=== PATIENT | male | born 1980 | race Caucasian/White ===

== ENCOUNTER 2020-09-20 20:08 | Emergency (ER) | payer OTHER, SELFPAY ==
[2020-09-20 20:16] VITALS: BP 152/109; PULSE 121; RESP 18; TEMP 37.1; O2SAT 97; BMI 28.7
--- NOTE | 2020-09-20 20:27 | ED.PSYCH ---
HPI - Psych General Chief Complaint: Psychiatric Symptoms Stated Complaint: ETOH,SI Time Seen by Provider: 09/20/20 20:25 Source: patient and EMS Mode of arrival: EMS Limitations: altered mental status (Acute alcohol intoxication) History of Present Illness HPI Narrative: 40-year-old male presents via EMS for acute alcohol intoxication and suicidal statement. Per patient's , patient has been drinking alcohol in excess the past few weeks drinking at least 750 mL of vodka daily. He has been punching himself in the face and punching in [place]. He is having some significant life stressors at home suspected to be a job loss. Patient is belligerent upon arrival. MD complaint: suicidal ideation, feels depressed and alcohol abuse Onset (ago): week(s) Duration: constant History of same: Yes Relieving factors: none Exacerbating factors: alcohol Context: recent alcohol abuse Associated psychiatric symptoms: depression and suicidal ideation Associated symptoms: denies other symptoms If self harm: admits thoughts of self harm and self-inflicted trauma Related Data Allergies Allergy/AdvReac Type Severity Reaction Status Date / Time No Known Allergies Allergy Unverified 01/17/20 15:49 [No Known Allergies*] Review of Systems Review of Systems: Yes Unobtainable due to mental status PMFSH Past Medical History Attestation statement: The following information was validated with the patient. Source: old records reviewed Social History Social History Advance Directives: No Advance Directives Information Provided: No Physical Exam Vital Signs: Vital Signs: Last Vital Signs Temp 98.2 F 09/20/20 22:27 Pulse 124 H 09/20/20 22:27 Resp 20 09/20/20 22:27 BP 140/107 H 09/20/20 22:27 Pulse Ox 96 09/20/20 22:27 Body Mass Index 28.7 Appearance: Alert. Oriented X3. Moderate distress. Acute alcohol intoxication Eyes: Pupils equal, round and reactive to light. Palpebral fissures edematous 2nd crying. Right orbital-forehead hematoma secondary to patient punching himself in the face. ENT: Pharynx normal. Neck: Normal inspection. Neck supple. CVS: Normal heart rate and rhythm. Pulses normal. Respiratory: No respiratory distress. Breath sounds normal. Abdomen: Soft and nontender. Skin: Skin warm and dry. Normal skin color. Normal skin turgor. Extremities: Moves all extremities against resistance. Neuro: No motor deficit. No sensory deficit. Course Course Course Narrative: 40-year-old male presents for alcohol intoxication and suicidal statements. Has been inflicting harm to himself, and punching himself in the face and punching in [place] and making suicidal statements.. Has been drinking 750 mL of vodka daily the past few weeks. called EMS and 911 due to patient's anger outbursts. feels safe, he has never harmed her, she is concerned about his safety. Patient will be on CIWA, patient is interested in detox. Will have cost recovery technician speak to him once he is clinically sober. 1:10 a.m. Physician observation started at this time. Ethanol 385. Patient will be a section 12, BHN consult in the morning. MDM - Psych Differential Diagnosis Differential diagnosis: Likely suicidal ideation, depression and alcohol intoxication Medical Records Attestation: I reviewed the patient's medical records. Lab Data Attestation: I reviewed the patient's lab results. Labs: Lab Results 09/20/20 09/20/20 Range/Units 20:24 22:15 Ethyl Alcohol 385 H* mg/dL COVID-19 (GEORGETTE) Negative (Negative) COVID-19 Clin Com See Note Discharge Plan Discharge Clinical Impression: Suicidal ideation, Alcohol abuse Patient Disposition: Home, Self-Care Interventions: ED Discharge Assessment Last Done: 09/20/20 21:57
[2020-09-20 20:47] LABS: COVID-19 Test Negative (Negative); IDNOW Serial# 9DD0AD1C
[2020-09-20] MEDS: Folic Acid 1 MG TABLET PO (22:26)
[2020-09-20] MEDS: Thiamine HCL 100 MG TABLET PO (22:26)
[2020-09-20 22:27] VITALS: BP 140/107; PULSE 124; RESP 20; TEMP 36.8; O2SAT 96
[2020-09-20] MEDS: LORazepam 1 MG TABLET 2 MG PO (22:35)
[2020-09-20 22:51] LABS: Ethanol 385 mg/dL
--- NOTE | 2020-09-21 01:16 | PC.NURSE ---
BHN notified through smart-sheet/awaiting call back.
[2020-09-21 06:07] VITALS: BP 114/76; PULSE 99; RESP 14; TEMP 36.4; O2SAT 96
[2020-09-21 06:40] LABS: Amphetamine Screen Urine Not Detected (Not Detect); Barbiturates, Urine Not Detected (Not Detect); Benzodiazepines Screen Urine Not Detected (Not Detect); Cannabinoid Screen Urine Not Detected (Not Detect); Cocaine Screen Urine Not Detected (Not Detect); Opiate Screen Urine Not Detected (Not Detect); Phencyclidine Screen Urine Not Detected (Not Detect)
[2020-09-21 10:58] VITALS: BP 134/81; PULSE 75; RESP 18; TEMP 36.6; O2SAT 97
--- NOTE | 2020-09-21 11:04 | MHC.RECOVSUP ---
Recovery Support note: Patient is a 40 year old Maori speaking male who presented to [facility] ED due to making an SI statement while intoxicated. Patient was evaluated by ANTONINA and cleared of needing inpatient psychiatric care. N recommends EATS or detox level of care. This assembly instructions writer met with patient to discuss plan. Patient reports he is interested in going to detox but that he has had a hard time finding a bed. Discussed situation with patient's , Nelia, who reports that patient has been drinking since 12/2019 and that he lost his job last week and has been drinking significantly more since then. reports patient needs assisted treatment and that an ATS/CSS admission will be too short. 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 Plan for patient to be referred for EATS programs and if patient is not placed, patient will discharge tomorrow morning to work with his on getting into [facility] or another detox program as a walk in. Patient has been cleared by Glenn and is able to leave if he is no longer interested in staying in the ED. Discussed case with patient's ED provider and ANTONINA.
[2020-09-21 15:34] VITALS: RESP 16
[2020-09-21 15:40] VITALS: BP 145/94; PULSE 91; RESP 18; TEMP 36.6; O2SAT 97
[2020-09-21] MEDS: Acetaminophen 325 MG TABLET 650 MG PO (15:41)
--- NOTE | 2020-09-21 19:45 | MHC.CARE ---
[facility] crisis eval and ED physician report with labs and med clearance were faxed to Deon at [facility] [phone]
--- NOTE | 2020-09-21 20:07 | PC.NURSE ---
Patient in bed resting quietly, no distress observed/reported, asymptomatic of withdrawal, per report patient had a decent day, will continue to monitor.
[2020-09-22 04:19] VITALS: BP 150/107; PULSE 86; RESP 16; TEMP 36.4; O2SAT 96
--- NOTE | 2020-09-22 07:00 | PC.NURSE ---
received report from prior RN, patient appears to remain asleep at present breathing even unlabored breaths, patient appears in no distress
[2020-09-22 07:25] VITALS: BP 150/107; PULSE 96; RESP 18; TEMP 36.9; O2SAT 97
--- NOTE | 2020-09-22 09:42 | MHC.RECOVSUP ---
Recovery Support note: Patient was accepted to [facility]. This chief writer spoke with patient's and her mother will be coming [place] [facility] [place] 1030 to pick patient up to transport him to the facility in [place]. ED staff aware.
== END 2020-09-22 10:29 ==
PROVIDERS: Nurse Practitioner Family; Emergency Provider Student in an Organized Health Care Education/Training Program
DX: F10.120 Alcohol abuse with intoxication, uncomplicated (principal); Y90.8 Blood alcohol level of 240 mg/100 ml or more; R45.851 Suicidal ideations; F32.9 Major depressive disorder, single episode, unspecified; Z20.822 Contact with and (suspected) exposure to COVID-19
CPT/HCPCS: 36415; 80307; 80320; 87635; 99285

== ENCOUNTER 2024-01-05 09:39 | Outpatient (AMB) | payer OTHER, SELFPAY ==
--- NOTE | 2024-01-05 10:08 | A.OFFPC_ITS ---
Vital Signs 01/05/24 10:11 Height 6 ft Weight 200 lb 6 oz BMI 27.2 BP 124/70 Blood Pressure Location Lt brachial Position Sitting Respiration 14 Pulse 62 Pulse Source Pulse Oximeter Pulse Oximetry (%) 98 Oxygen Delivery Method Room Air Intake Visit Reasons: Establish Care Intake Note: patient here to establish care Allergies No Known Allergies [No Known Allergies*] Allergy (Verified 01/05/24 10:15) Medication List - Last Reconciled 01/05/24 by Marybel Davidson [facility] cholecalciferol (vitamin D3) 50 mcg PO DAILY sour clark extract (Tart Clark Extract) mg PO Tobacco use date assessed: 01/05/24 Dental Screening Dental Screen Date: 01/05/24 Did you have a dental visit in the last 12 months?: No Did you have a dental problem in the last 6 months where you did not have access to dental care?: No Was dental information given to patient?: No HPI HPI Comments History of Present Illness Details 43 y/o with [place] use disorder in [place], vitamin d def Hospitalizations: Several detox, last and brought in 2020 Health Maintenance: Tdap PSA ordered today Specialists: Counselor Here today to establish care. Coming from [facility], no medical records available to me today. Overall he reports that he is in a good state of health. He is only taking a d ark clark and vitamin-D supplement. Really unsure why he is taking the tortuosity supplement as he denies a history of gout or urinary complaints. He does report his vitamin-D level was low in the past. However he is taking the supplement. In regards to other history, he reports a history of cocaine abuse several years ago. This has been in remission for some time. However he has been abusing alcohol for about 20 years. He has been in recovery since 2020. He reports that he remains active in his recovery and has a support team. He runs daily and lifts weights. Denies any medical complications related to his substance use disorder. Otherwise he does complain of some neck pain that started about 4 years ago without overt injury. He reports that the pain only occurs with certain m ovements such as lifting his left arm. The pain is not present all the time. He reports that he did undergo physical therapy about 2 years ago and this was helpful. Most recently his primary care tried to order an MRI however this was denied by the insurance. He reports that x-rays were done in the past while he was hospitalized in [place]. When asked about numbness he does report that he has some numbness in his left thumb and index finger however this is only when he runs and is self-limiting. Otherwise he denies any neurovascular complications. He is right-hand dominant. Does complain of some bilateral knee pain although this is not really bothersome, rather just a mention. Admits to running long distances, today 40 mi or the other weekend. Etoh abuse for 20 years. Sober since 2020. Several detox admissions. hx of cocaine use, septum issues Exam Awake alert oriented, acute distress PERRLA, EOMI Neck full range of motion, cervical spine nontender with palpation. Full range of motion normal strength and tone in bilateral upper extremities. When arms raised laterally complains of pain the left side of his neck and into his left shoulder. No obvious deformities. No erythema. No edema. Regular rate and rhythm Lung sounds clear to auscultation bilat Mood and affect appropriate Plan: Refer to PT for neck pain. Check screening labs At this time, cont supplements. Sobriety celebrated ! Return to office in 6 weeks for complete physical exam, sooner as needed This note is constructed using voice recognition software. While every effort has been made to ensure accuracy in associate professor of radiology, still errors may have been included Sometimes, these errors may affect the content or meaning of the given sentence . Total time spent caring for the patient today was 30 minutes. This includes time spent before the visit reviewing the chart, time spent during the visit, and time spent after the visit on documentation [facility] Medical History (Updated 01/05/24 @ 11:00 by Marybel Davidson, [facility]) Drug addiction Alcoholism Surgical History (Updated 01/05/24 @ 10:16 by Siobhan Rushing) No pertinent past surgical history Family History (Updated 01/05/24 @ 10:18 by Siobhan Rushing) Mother Hypertension High cholesterol Father Cancer Alcoholism Substance abuse Social History (Updated 01/05/24 @ 10:18 by Siobhan Rushing) Household Members: Spouse Housing: Apartment Do you presently have visiting nurse or other home services: No 75 years or older and lives alone: No Alcohol intake: former Year quit: 3yrs Patient Tobacco Use Status: Never used Tobacco e-Cigarette/Vaping Use: Never Used service: No Current occupational status: employed 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 1. Little interest or pleasure in doing things: not at all 2. Feeling down, depressed, or hopeless: not at all 3. Trouble falling or staying asleep, or sleeping too much: not at all 4. Feeling tired or having little energy: several days 5. Poor appetite or overeating: not at all 6. Feeling bad about yourself - or that you are a failure or have let yourself or your family down: not at all 7. Trouble concentrating on things, such as reading the newspaper or watching television: not at all 8. Moving or speaking so slowly that other people could have noticed. Or the opposite - being so fidgety or restless that you have been moving around a lot more than usual: not at all 9. Thoughts that you would be better off or of hurting yourself in some way: not at all Total score: 1 Depression Screening Interpretation: Negative Depression Screening Done: Yes 73997 - PHQ-9 Billing: Yes Source: Developed by Drs. Deon Fernandez, Carmen Mancia, Darnell Vines and colleagues, with an educational aniyah from [employer]. Thrive Questionnaire Date Thrive assessed: 01/05/24 I am a: Patient What is your living situation today?: I have a steady place to live Within the past 12 months, did the food you bought not last and you didn't have the money to get more?: Never true Within the past 12 months, did you worry whether your food would run out before you got money to buy more?: Never true Do you have trouble paying for medicines?: No Do you have trouble getting transportation to medical appointments?: No Do you have trouble paying your heating and electricity bill?: No Do you have trouble taking care of your child, family member or friend?: No Do you have trouble with day-to-day activities such as bathing, preparing meals, shopping, managing finances, etc.?: No Are you currently unemployed and looking for a job?: No Are you interested in more education?: No Please select the resources that you would like help with: None THRIVE Score: 0 AUDIT C Alcohol Use Questionnaire (AUDIT-C) 1. How often do you have a drink containing alcohol?: Never Total Score: 0 Score Reviewed/Action Taken: Yes FARIDEH-7 AMB Questionnaire FARIEDH-7 Date FARIDEH - 7 assessed: 01/05/24 Feeling nervous, anxious, or on edge: 0 = Not at all Not being able to stop or control worryin = Not at all Worrying too much about different things: 0 = Not at all Trouble relaxin = Not at all Being so restless that it is hard to sit still: 0 = Not at all Becoming easily annoyed or irritable: 0 = Not at all Feeling afraid as if something awful might happen: 0 = Not at all Total FARIDEH-7 score (0-4 normal; 5-9 mild; 10-14 moderate; 15-21 severe): 0 Source: Developed by Drs. Deon Fernandez, Carmen Mancia, Darnell Vines and colleagues, with an educational aniyah from [employer]. FARIDEH-7 Assessment Billing FARIDEH-7 Assessment Tool: FARIDEH-7 Assessment 80094 Physical exam (Primary Care) Vital Signs: Last Vital Signs Pulse 62 01/05/24 10:11 Resp 14 01/05/24 10:11 BP 124/70 01/05/24 10:11 Pulse Ox 98 01/05/24 10:11 Oxygen Delivery Method Room Air 01/05/24 10:11 BMI result Body Mass Index 27.2 Tobacco/Smoking Status: Tobacco use Status Tobacco use date assessed 01/05/24 01/05/24 10:13 Patient Tobacco Use Status Never used Tobacco 01/05/24 10:13 e-Cigarette/Vaping Use Never Used 01/05/24 10:13 PHQ-9: PHQ-9 Score PHQ-9: Total score 1 01/05/24 10:21 Depression Screening Interpretation: Negative Thrive Assessment: Date of Thrive Assessment Date Thrive assessed 01/05/24 01/05/24 10:15 Assessment and Plan Assessment & Plan (1) Cervical pain (neck): Code(s): M54.2 - Cervicalgia (2) Alcohol dependence: Code(s): F10.20 - Alcohol dependence, uncomplicated Qualifiers: Substance use status: in remission Qualified Code(s): F10.21 - Alcohol dependence, in remission (3) Cocaine abuse in remission: Code(s): F14.11 - Cocaine abuse, in remission (4) Vitamin D deficiency: Code(s): E55.9 - Vitamin D deficiency, unspecified (5) Laboratory exam ordered as part of routine general medical examination: Code(s): Z00.00 - Encounter for general adult medical examination without abnormal findings Orders: Orders PT Evaluation and Treatment Today M54.2 - Cervicalgia Comprehensive Met. Panel Today Z00.00 - Encounter for general adult medical examination without abnormal findings TSH reflex Free T4 Today Z00.00 - Encounter for general adult medical examination without abnormal findings PSA, Ultra Sensitive Today Z00.00 - Encounter for general adult medical examination without abnormal findings Hemoglobin A1c Today Z00.00 - Encounter for general adult medical examination without abnormal findings LDL Cholesterol Direct Today Z00.00 - Encounter for general adult medical examination without abnormal findings Vitamin B12 and Folate Today Z00.00 - Encounter for general adult medical examination without abnormal findings Vitamin D 1,25 dihydroxy Today Z00.00 - Encounter for general adult medical examination without abnormal findings Microalbumin, Random (w Creat) Today Z00.00 - Encounter for general adult medical examination without abnormal findings Patient Instructions: Walk-In Care (Urgent Care): We Make it Easy Walk-in for urgent medical issues such as: ? Seasonal Allergies ? Insect Bites ? Cough ? Diarrhea ? Acute Asthma Attacks ? Back, Knee or Joint Pain ? Ear Infection ? Fever without a Rash ? Headaches ? Nausea ? [place], Rash or Skin Irritation ? Sore Throat ? Sports Physicals ? Vomiting Most insurances are accepted. Patients do not need to be part of the [facility] to seek care at the walk-in clinic. Locations [facility] [address], [place] [address] ? [phone] [facility] Walk-In Care in [place] provides services to ages 18 and over. Open Tuesday-Tuesday: 8 a.m. to 5 p.m. and Tuesday: 9 a.m. to 3 p.m.* *Hours may vary due to staffing availability. To confirm Walk-In Care hours in [place], please call [phone]. [address] [place] [address], [place] [address] ? [phone] [facility] Walk-In Care in [place] provides services to ages 12 and over. Open Tuesday-Tuesday: 8 a.m. to 5 p.m. Hours may vary due to staffing availability. To confirm Walk-In Care hours in [place], please call [phone]. LABORATORY SERVICES: [facility] Lab ? Primary Location [address] [place] [address] Tuesday through Tuesday 6:00 AM ? 5:00 PM Tuesday 7:00 AM ? 11:00 AM* [phone] The [facility] Lab is centrally located near the front entrance of the [facility] for easy outpatient access. Convenient parking is provided for outpatients. *Hours may vary due to staffing availability. To confirm Laboratory hours for any location, please call [phone]. Offsite Location For your convenience, we offer offsite laboratory draw stations at the following locations: [address] [place] [address] ? [address], [address] Tuesday through Tuesday 7:30 AM ? 1:00 PM* [phone] *Hours may vary due to staffing availability. To confirm Laboratory hours for any location, please call [phone]. [place] ? [address] Tuesday through Tuesday 6:00 AM ? 3:30 PM* Tuesday 6:30 AM ? 3 PM* [phone] *Hours may vary due to staffing availability. To confirm Laboratory hours for any location, please call [phone] [place] [address] Tuesday through Tuesday 7:30 AM ? 4:00 PM* [phone] *Hours may vary due to staffing availability. To confirm Laboratory hours for any location, please call [phone] [place] [address] Tuesday through 9:00 AM ? 4:00 PM* *Hours may vary due to staffing availability. To confirm Laboratory hours for any location, please call [phone]. Appointments are not necessary. Walk-ins are welcome. Like all the departments throughout the [facility], our Lab undergoes frequent reviews to ensure the quality and accuracy of test results, and our staff takes special pride in its status as a nationally accredited facility. Patient Portal: ONE PATIENT. ONE RECORD. BETTER CARE. [facility] has a fully integrated, cutting- edge mobile electronic health information system that has revolutionized the way we care for our patients and manage our organization. This system improves communication and coordination enabling us to provide safe, higher-quality care, and an overall positive experience for staff and patients. Our first priority, as always, is to deliver the highest quality care possible. The system is running in the background supporting that priority. This portal is for all [facility] services and practices. If you are experiencing any technical difficulties with enrolling or logging into the Patient Portal please complete the [facility] Patient Portal Technical Support Form. [facility] now offers a new secure on-line interactive tool for patients to review their health information ? ?Patient Portal. This interactive web portal will enable patients and their families to take an active role in their care by providing easy, secure access to their health information via the internet. The Patient Portal provides patients with instant access to their health information, including laboratory results, medications, allergies, demographic information, visit history, and more. In addition to managing their own care, parents and health care proxies with authorized consent will appreciate the ability to access the records of those individuals for whom they provide care. Please note: if you wish to gain access (Proxy) to another patient?s portal, you will be required to come to the Medical Records Department in person at [facility]. Both the patient giving proxy access and the proxy will need to provide photo identification and complete the appropriate authorization. The Patient Portal also allows track their appointments online. The [facility] Patient Portal also saves patients time by allowing them to submit updates to their demographic and contact information prior to their visits. Portal email notifications will also alert patients to any new activity on their portal, such as test results and new appointments. In order to initially enroll in the [facility] Patient Portal, you will need to enter some required information including the following: * your [facility] Medical Record number * your personal home email address * name * date of Please note: In order to enroll in the [facility] Patient Portal, we need to have your email address on file in your electronic medical record. ?The email address needs to be specific for one person (yourself) in order for your Portal enrollment to be successful. ?You can update your email address in person with our Registration staff when you are registering for a hospital visit. ?Otherwise, you will need to come to the Health Information Management (Medical Records) Department at [facility]. ?We are open from Tuesday ? Tuesday from 7:30 a.m. ? 4:30 p.m. ?You will be required to present a photo id. Once you have successfully enrolled in the Patient Portal, you will receive a one-time user id and password for the Portal, sent to your email address. ?This will allow you to log into the Patient Portal within 99 hrs and reset your own logon id and password, and define personal security questions. ?Once your permanent login and password have been set, you can log into the [facility] Patient Portal at any time via the blue button above or from the Portal Logon button on any page of the [facility] website. [facility] and [facility] encourage all of our patients to enroll in Patient Portal as it presents a valuable opportunity for patients and their families to actively participate in their care and stay healthy Welcome to [facility]. ?We look forward to working with you. Coding Level of Care Code New Pt Level 4 (61494) Diagnoses Cervical pain (neck) M54.2 Alcohol dependence in remission F10.21 Substance use status: in remission Cocaine abuse in remission F14.11 Vitamin D deficiency E55.9 Laboratory exam ordered as part of routine general medical examination Z00.00 Additional Codes FARIDEH-7 Assessment Billing - FARIDEH-7 Assessment Tool: FARIDEH-7 Assessment 45864 ([id number])
[2024-01-05 10:11] VITALS: BP 124/70; PULSE 62; RESP 14; O2SAT 98; BMI 27.2
== END 2024-01-05 10:40 | disposition home or self-care (01) ==
PROVIDERS: Visit Provider Nurse Practitioner Family
DX: M54.2 Cervicalgia (principal); F10.21 Alcohol dependence, in remission; F14.11 Cocaine abuse, in remission; E55.9 Vitamin D deficiency, unspecified
CPT/HCPCS: 99204

== ENCOUNTER 2024-01-05 10:32 | Outpatient (REF) | payer OTHER, SELFPAY ==
[2024-01-05 14:55] LABS: Estimated Average Glucose 91 mg/dL; Hemoglobin A1c % 4.8 % (<6.0)
[2024-01-05 15:07] LABS: Alanine Aminotransferase 19 U/L (0-40); Albumin Level 4.4 g/dL (3.5-5.0); Alkaline Phosphatase 35 U/L (39-117); Anion Gap 12 (12-20); Aspartate Amino Transferase 21 U/L (5-37); Bilirubin Total 2.6 mg/dL (0.0-1.0); Blood Urea Nitrogen 14 mg/dL (9-16); Calcium 9.5 mg/dL (8.4-10.2); Carbon Dioxide 28 mmol/L (22-29); Chloride 102 mmol/L (96-108); Estimated Glomerular Filt Rate > 60; Glucose Random 89 mg/dL (60-115); Potassium 4.3 mmol/L (3.3-5.1); Sodium 138 mmol/L (135-145); Total Protein 7.5 g/dL (6.5-8.0)
[2024-01-05 15:23] LABS: Creatinine Urine 31.32 mg/dL; Microalbumin Urine < 5.0 mg/L
[2024-01-05 15:34] LABS: Folate 12.6 ng/mL (> or = 4.0); Vitamin B12 427 pg/mL (200-900)
[2024-01-06 17:37] LABS: LDL Cholesterol Direct 109 mg/dL (<100)
[2024-01-10 01:28] LABS: VITAMIN D (1,25 OH) D3 33 pg/mL; Vit D (1,25-Dihydroxy) Total 33 pg/mL (18-72); Vitamin D (1,25 OH) D2 <8 pg/mL
== END 2024-01-05 10:33 | disposition home or self-care (01) ==
LOC: HO.WFDLDS 10:32
PROVIDERS: Visit Provider Nurse Practitioner Family
DX: Z00.00 Encounter for general adult medical examination without abnormal findings (principal); Z12.5 Encounter for screening for malignant neoplasm of prostate; Z13.1 Encounter for screening for diabetes mellitus
CPT/HCPCS: 36415; 80053; 82043; 82570; 82607; 82652; 82746; 83036; 83721; 84153; 84443

== ENCOUNTER 2024-02-15 07:51 | Outpatient (AMB) | payer OTHER, SELFPAY ==
--- NOTE | 2024-02-15 08:00 | A.OFFPC_ITS ---
Vital Signs 02/15/24 08:03 Height 6 ft Weight 202 lb BMI 27.4 BP 118/68 Blood Pressure Location Rt brachial Position Sitting Respiration 14 Pulse 56 Pulse Source Pulse Oximeter Pulse Oximetry (%) 98 Oxygen Delivery Method Room Air Intake Visit Reasons: 6 weeks CPE Intake Note: annual physical Allergies No Known Allergies [No Known Allergies*] Allergy (Verified 02/15/24 08:18) Medication List - Last Reconciled 02/15/24 by Marybel Davidson, [facility] cholecalciferol (vitamin D3) 50 mcg PO DAILY sour clark extract (Tart Clark Extract) mg PO Tobacco use date assessed: 01/05/24 Dental Screening Dental Screen Date: 01/05/24 HPI HPI Comments History of Present Illness Details 43 y/o with [place], vitamin d def Social: , employed Surgical hx: none Family hx: Mom: , brain aneurysm 58, had HTN. Dad: cancer renal, etoh abuse. Siblings: 1 sister alive and well, 1/2 sister osteoporosis All grandparents - unsure about cancer, heart disease. Maternal aunt mental health. Hospitalizations: Several detox, last and brought in 2020 Health Maintenance: Tdap 11/26/20 PSA 01/05/24 Flu declined Specialists: Counselor Here today for CPE. Labs from 01/05/24 show electrolytes normal renal function, hemoglobin A1c 4.8% elevated total bilirubin 2.6 with normal AST and ALT, alk-phos a little bit low at 35, total protein albumin, normal B12 and folate, normal TSH, normal random microalbumin, direct LDL 109. Vit d normal, PSA normal Has some MS pain from running. Using topical magnesium to help. Foam rolling. Will be doing 100k 62 miles Was referred to PT at last visit for L shoulder/neck did not schedule yet. Not as bothersome now that not doing mopping/sweeping which caused the pain. Has never had MRI for brain aneurysm screening; Mom age 58. Has headaches at times; Denies red flag Eyes - glasses. Regular eye exams, last Summer 2023 c/o [place], worse in noisy environment, constant feeling of something in L ear. Skin - no concerns. Abd - no concerns Elimination - no issues Plan Left great toe and 5th toe subungal hematoma - reassured. Audiogram for [place] Brain MRI to screen for aneurysm Cont supplements Declined Flu RTO 1 year CPE sooner PRN [facility] Medical History Drug addiction Alcoholism Surgical History No pertinent past surgical history Family History Mother Hypertension High cholesterol Father Cancer Alcoholism Substance abuse Social History Household Members: Spouse Housing: Apartment Do you presently have visiting nurse or other home services: No 75 years or older and lives alone: No Alcohol intake: former Year quit: 3yrs Patient Tobacco Use Status: Never used Tobacco e-Cigarette/Vaping Use: Never Used service: No Current occupational status: employed 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 1. Little interest or pleasure in doing things: not at all 2. Feeling down, depressed, or hopeless: not at all 3. Trouble falling or staying asleep, or sleeping too much: not at all 4. Feeling tired or having little energy: not at all 5. Poor appetite or overeating: not at all 6. Feeling bad about yourself - or that you are a failure or have let yourself or your family down: not at all 7. Trouble concentrating on things, such as reading the newspaper or watching television: not at all 8. Moving or speaking so slowly that other people could have noticed. Or the opposite - being so fidgety or restless that you have been moving around a lot more than usual: not at all 9. Thoughts that you would be better off or of hurting yourself in some way: not at all Total score: 0 40662 - PHQ-9 Billing: Yes Source: Developed by Drs. Deon Fernandez, Carmen Mancia, Darnell Vines and colleagues, with an educational aniyah from [employer]. Thrive Questionnaire Date Thrive assessed: 02/15/24 I am a: Patient What is your living situation today?: I have a steady place to live Within the past 12 months, did the food you bought not last and you didn't have the money to get more?: Never true Within the past 12 months, did you worry whether your food would run out before you got money to buy more?: Never true Do you have trouble paying for medicines?: No Do you have trouble getting transportation to medical appointments?: No Do you have trouble paying your heating and electricity bill?: No Do you have trouble taking care of your child, family member or friend?: No Do you have trouble with day-to-day activities such as bathing, preparing meals, shopping, managing finances, etc.?: No Are you currently unemployed and looking for a job?: No Are you interested in more education?: No Please select the resources that you would like help with: None Currently or been in a relationship where the following occur: No concerns reported THRIVE Score: 0 AUDIT C Alcohol Use Questionnaire (AUDIT-C) 1. How often do you have a drink containing alcohol?: Never Total Score: 0 FARIDEH-7 AMB Questionnaire FARIDEH-7 Date FARIDEH - 7 assessed: 02/15/24 Feeling nervous, anxious, or on edge: 0 = Not at all Not being able to stop or control worryin = Not at all Worrying too much about different things: 0 = Not at all Trouble relaxin = Not at all Being so restless that it is hard to sit still: 0 = Not at all Becoming easily annoyed or irritable: 0 = Not at all Feeling afraid as if something awful might happen: 0 = Not at all Total FARIDEH-7 score (0-4 normal; 5-9 mild; 10-14 moderate; 15-21 severe): 0 Source: Developed by Drs. Deon Fernandez, Carmen Mancia, Darnell Vines and colleagues, with an educational aniyah from [employer]. FARIDEH-7 Assessment Billing FARIDEH-7 Assessment Tool: FARIDEH-7 Assessment 50831 Review of Systems Const Details: Constitutional: Denies fever. Skin: Denies rash. Eye: Denies eye pain. ENMT: Denies sore throat and nasal congestion. Respiratory: Denies shortness of breath and cough. Gastrointestinal: Denies nausea, vomiting or abdominal pain. Cardiovascular: Denies chest pain and syncope. Genitourinary: Denies dysuria. Musculoskeletal: Denies back pain and extremity pain. Neurologic: Denies confusion, and weakness. Psychiatric: Denies suicidal thoughts and substance abuse. Allergy/ Immunologic: Denies impaired immunity. Physical exam (Primary Care) Vital Signs: Last Vital Signs Pulse 56 02/15/24 08:03 Resp 14 02/15/24 08:03 BP 118/68 02/15/24 08:03 Pulse Ox 98 02/15/24 08:03 Oxygen Delivery Method Room Air 02/15/24 08:03 BMI result Body Mass Index 27.4 Tobacco/Smoking Status: Tobacco use Status Tobacco use date assessed 01/05/24 02/15/24 08:02 Patient Tobacco Use Status Never used Tobacco 02/15/24 08:02 e-Cigarette/Vaping Use Never Used 02/15/24 08:02 PHQ-9: PHQ-9 Score PHQ-9: Total score 0 02/15/24 08:06 Thrive Assessment: Date of Thrive Assessment Date Thrive assessed 02/15/24 02/15/24 08:06 Currently or been in a relationship where the following occur: No concerns reported Const Other: General: Well developed, well nourished, in no acute distress. Appears stated age. Head: Normocephalic, atraumatic. Eyes: Pupils are equal, round and reactive to light and accommodation. Conjunctivae are clear. Vision grossly normal. Ears: TMs clear AU, EACS WNL Nose: Patent, without discharge. Mouth: There are no ulcers or lesions noted. No inflammation, no post nasal drip, no plaques nor exudates. Neck: Supple, no adenopathy or thyromegaly. Lungs: Clear to auscultation bilaterally. No rales, rhonchi or wheeze noted. Good air flow in all dobbs. Heart: Regular rate and rhythm. No murmurs, click, rubs or gallops are noted. Abdomen: Bowel sounds present in all quadrants. The abdomen is soft, nontender, with no masses or organomegaly noted. No hernias are noted. Musculoskeletal: Joints are nontender, without swelling, redness, or effusions. Range of motion is observed to be normal. Pulses: Peripheral pulses are equal and palpable bilaterally. Extremities: No clubbing, cyanosis nor edema is noted. Neurologic: Gait and station normal. Cranial Nerves 2-12 intact. Motor strength grossly symmetrical and intact. No sensory loss. Balance normal. Skin: No rashes, ulcers, or lesions noted. Turgor is good. Skin color is good. Hair and nails are without abnormalities. Psych: Normal eye contact, affect and mood appropriate, and normal interactions. Patient is alert and appropriate to context. Coding Level of Care Code Est Pt Prev Care 40-64y(28183) Diagnoses Encounter for general adult medical examination without abnormal findings Z00.00 Hard of hearing H91.90 Family history of brain aneurysm Z82.49 Nonintractable episodic headache, unspecified headache type R51.9 Headache type: unspecified Headache chronicity pattern: episodic headache Intractability: not intractable Additional Codes FARIDEH-7 Assessment Billing - FARIDEH-7 Assessment Tool: FARIDEH-7 Assessment 14644 ([id number]) Assessment & Plan Assessment & Plan (1) Encounter for general adult medical examination without abnormal findings: Code(s): Z00.00 - Encounter for general adult medical examination without abnormal findings Plan: . (2) Hard of hearing: Code(s): H91.90 - Unspecified hearing loss, unspecified ear Category: Medical Plan: . (3) Family history of brain aneurysm: Code(s): Z82.49 - Family history of ischemic heart disease and other diseases of the circulatory system Category: Medical Plan: . (4) Headache: Code(s): R51.9 - Headache, unspecified Category: Medical Qualifiers: Headache type: unspecified Headache chronicity pattern: episodic headache Intractability: not intractable Qualified Code(s): R51.9 - Headache, unspecified Plan: . Plan . Orders: Orders MR head/brain wo con Today R51.9 - Headache, unspecified, Z82.49 - Family history of ischemic heart disease and other diseases of the circulatory system Referrals Audiology Referral H91.90 - Unspecified hearing loss, unspecified ear Patient Instructions: Health screenings for men ages 40 to 64 You should visit your health care provider regularly, even if you feel healthy. The purpose of these visits is to: Screen for medical issues Assess your risk for future medical problems Encourage a healthy lifestyle Update vaccinations and other preventive care services Help you get to know your provider in case of an illness Information Even if you feel fine, you should still see your provider for regular checkups. These visits can help you avoid problems in the future. For example, the only way to find out if you have high blood pressure is to have it checked regularly. High blood sugar and high cholesterol level also may not have any symptoms in the early stages. Simple blood tests can check for these conditions. There are specific times when you should see your provider or receive specific health screenings. The [place] Preventive Services Task Force publishes a list of recommended screenings. Below are screening guidelines for men ages 40 to 64. BLOOD PRESSURE SCREENING Have your blood pressure checked at least once every year. Watch for blood pressure screenings in your area. Ask your provider if you can stop in to have your blood pressure checked. Ask your provider if you need your blood pressure checked more often if: You have diabetes, heart disease, kidney problems, or are overweight or have certain other health conditions You have a first-degree relative with high blood pressure You are Black Your blood pressure top number is from 120 to 129 mm Hg, or the bottom number is from 70 to 79 mm Hg If the top number is 130 mm Hg or greater or the bottom number is 80 mm Hg or greater, this is considered stage 1 hypertension. Schedule an appointment with your provider to learn how you can lower your blood pressure. Effects of age on blood pressure CHOLESTEROL SCREENING Cholesterol screening should begin at age 35 for men with no known risk factors for coronary heart disease. Repeat cholesterol screening should take place: Every 5 years for men with normal cholesterol levels More often if changes occur in lifestyle (including weight gain and diet) More often if you have diabetes, heart disease, kidney problems, or certain other conditions COLORECTAL CANCER SCREENING If you are under age 45, talk to your provider about getting screened. You may need to be screened if you have a strong family history of colon cancer or polyps. Screening may also be considered if you have risk factors such as a history of inflammatory bowel disease or polyps. If you are age 45 to 75, you should be screened for colorectal cancer. There are several screening tests available: A stool-based fecal occult blood (gFOBT) or fecal immunochemical test (FIT) every year A stool sDNA test every 1 to 3 years Flexible sigmoidoscopy every 5 years or every 10 years with stool testing FIT done every year CT colonography (virtual colonoscopy) every 5 years Colonoscopy every 10 years You may need a colonoscopy more often if you have risk factors for colorectal cancer, such as: Ulcerative colitis A personal or family history of colorectal cancer A history of growths in your colon called adenomatous polyps DENTAL EXAM Go to the dentist once or twice every year for an exam and cleaning. Your dentist will evaluate if you have a need for more frequent visits. DIABETES SCREENING All adults who do not have risk factors for diabetes should be screened starting at age 35 and repeated every 3 years. If you have other risk factors for diabetes, such as a first degree relative with diabetes, overweight or obesity, high blood pressure, prediabetes, or a history of heart disease, you may be tested more often. If you are overweight and have other risk factors, such as high blood pressure and are planning to become , screening is recommended. EYE EXAM Have an eye exam every 2 to 4 years ages 40 to 54 and every 1 to 3 years ages 55 to 64. Your provider may recommend more frequent eye exams if you have vision problems or glaucoma risk. Have an eye exam that includes an examination of your retina (back of your eye) at least every year if you have diabetes. IMMUNIZATIONS Commonly needed vaccines include: Flu shot: get one every year COVID-19 vaccine: ask your provider what is best for you Tetanus-diphtheria and acellular pertussis (Tdap) vaccine: have as one of your tetanus-diphtheria vaccines if you did not receive it as an adolescent Tetanus-diphtheria: have a booster (or Tdap) every 10 years Varicella vaccine: receive 2 doses if you never had chickenpox or the varicella vaccine and were born in 1979 or after Hepatitis B vaccine: receive 2, 3, or 4 doses, depending on your exact circumstances, if you did not receive these as a child or adolescent, until age 59 Shingles (herpes zoster) vaccine: at or after age 50 Ask your provider if you should receive other immunizations, especially if you have certain medical conditions, such as diabetes or are at increased risk for some diseases such as pneumonia. INFECTIOUS DISEASE SCREENING Screening for hepatitis C: all adults ages 18 to 79 should get a one-time test for hepatitis C. Screening for human immunodeficiency virus (HIV): all people ages 15 to 65 should get a one-time test for HIV. Depending on your lifestyle and medical history, you may need to be screened for infections such as syphilis, chlamydia, and other infections. LUNG CANCER SCREENING You should have an annual screening for lung cancer with low-dose computed tomography (LDCT) if: You are age 50 to 80 years AND You have a 20 pack-year smoking history AND You currently smoke or have quit within the past 15 years OSTEOPOROSIS SCREENING If you are age 50 to 64 and have risk factors for osteoporosis, you should di scuss screening with your provider. Risk factors can include long-term steroid use, low body weight, smoking, heavy alcohol use, having a fracture after age 50, or a family history of hip fracture or osteoporosis. Osteoporosis PHYSICAL EXAM All adults should visit their provider from time to time, even if they are healthy. The purpose of these visits is to: Screen for diseases Assess risk of future medical problems Encourage a healthy lifestyle Update vaccinations and other preventive care services Maintain a relationship with a provider in case of an illness Your height, weight, and body mass index (BMI) should be checked at every exam. During your exam, your provider may ask you about: Depression and anxiety Diet and exercise Alcohol and tobacco use Safety, such as use of seat belts and smoke detectors Your medicines and risk for interactions PROSTATE CANCER SCREENING If you're 55 through 69 years old, before having the test, talk to your provider about the pros and cons of having a PSA test. Ask about: Whether screening decreases your chance of dying from prostate cancer. Whether there is any harm from prostate cancer screening, such as side effects from testing or overtreatment of cancer when discovered. Whether you have a higher risk of prostate cancer than others. If you are age 55 or younger, screening is not generally recommended. You should talk with your provider about if you have a higher risk for prostate cancer. Risk factors include: Having a family history of prostate cancer (especially a brother or father) Being If you choose to be tested, the PSA blood test is repeated over time (yearly or less often), though the best frequency is not known. Prostate examinations are no longer routinely done on men with no symptoms. Prostate cancer SKIN EXAM Your provider may check your skin for signs of skin cancer, especially if you're at high risk. People at high risk include those who have had skin cancer before, have close relatives with skin cancer, or have a weakened immune system. TESTICULAR EXAM The [place] Preventive Services Task Force (USPSTF) now recommends against performing testicular self-exams. Doing testicular self-exams has been shown to have little to no benefit.
[2024-02-15 08:03] VITALS: BP 118/68; PULSE 56; RESP 14; O2SAT 98; BMI 27.4
== END 2024-02-15 08:35 | disposition home or self-care (01) ==
PROVIDERS: Visit Provider Nurse Practitioner Family
DX: Z00.00 Encounter for general adult medical examination without abnormal findings (principal); H91.90 Unspecified hearing loss, unspecified ear; Z82.49 Family history of ischemic heart disease and other diseases of the circulatory system; R51.9 Headache, unspecified

== ENCOUNTER → 2024-02-15 07:51 | Outpatient (BNVA) | payer OTHER, SELFPAY | PROVIDERS: Visit Provider Nurse Practitioner Family | DX: Z00.01 Encounter for general adult medical examination with abnormal findings (principal); R51.9 Headache, unspecified; H91.90 Unspecified hearing loss, unspecified ear; Z82.49 Family history of ischemic heart disease and other diseases of the circulatory system | CPT/HCPCS: 96127 ==

== ENCOUNTER 2024-03-01 08:19 | Outpatient (REF) | payer OTHER, SELFPAY | END 2024-03-01 08:20 | disposition home or self-care (01) | LOC: HO.SH 08:19 | PROVIDERS: Visit Provider Nurse Practitioner Family | DX: Z01.118 Encounter for examination of ears and hearing with other abnormal findings (principal); H93.293 Other abnormal auditory perceptions, bilateral | CPT/HCPCS: 92557; 92567 ==

== ENCOUNTER 2024-03-21 07:21 | Outpatient (REF) | payer OTHER, SELFPAY ==
--- NOTE | ~2024-03-21 | MR_ITS ---
EXAMINATION: MR ANGIOGRAPHY BRAIN WITHOUT CONTRAST CLINICAL INFORMATION: Family history of ischemic heart disease. Headache. COMPARISON: None available. TECHNIQUE: 3D [id number] MR angiography was performed through the brain without the use of intravenous gadolinium. 3D postprocessing including acquisition of multiplanar MIP reformats are obtained at the technologist workstation and utilized for image interpretation. Stenoses are assessed in accordance with NASCET criteria unless otherwise indicated. FINDINGS: Normal flow-related signal within the anterior circulation without evidence of focal stenosis or occlusion of the intradural internal carotid, middle cerebral, or anterior cerebral arteries. Normal flow-related signal within the posterior circulation without evidence of focal stenosis or occlusion of the intradural vertebral, basilar, superior cerebellar, or posterior cerebral arteries. No demonstrated intradural aneurysms. No additional significant abnormalities on limited evaluation of the intracranial structures. Mucous retention cysts within the left maxillary sinus. MR/MR angio head wo con IMPRESSION: Normal brain MRA. Electronically signed by: David Dolan DO 04/11/2024 07:26 AM [place]
== END 2024-03-21 07:22 | disposition home or self-care (01) ==
LOC: HO.MRI 07:21
PROVIDERS: PCP Nurse Practitioner Family; Visit Provider Nurse Practitioner Family
DX: R51.9 Headache, unspecified (principal); Z82.49 Family history of ischemic heart disease and other diseases of the circulatory system
CPT/HCPCS: 70544

== ENCOUNTER 2025-01-19 17:40 | Emergency (ER) | payer OTHER, SELFPAY ==
[2025-01-19 17:45] VITALS: BP 120/75; PULSE 71; RESP 18; TEMP 36.7; O2SAT 97; BMI 27.2
--- NOTE | 2025-01-19 19:25 | ED.GENADULT ---
HPI - General Adult General Chief complaint: General Medical Stated complaint: rash, headache Time Seen by Provider: 01/19/25 18:49 Source: patient Limitations: no limitations History of Present Illness ED Provider: Marian Catalan PA-C HPI narrative: 44-year-old male who is otherwise healthy presents with facial rash x1 week. The rash started off as ?pimple like?. The rash spans from right side of forehead into the hairline and scalp, with a few lesions above the lid and at the lateral corner of the eye. Overlying erythema and subtle swelling of the upper right eyelid. No pain with extraocular eye movement. The rash is primarily pruritic, nonpainful. Denies that the lesions were ever vesicular in nature. The patient states he has outside often, [place]. The patient does not use contact lenses. Denies ear pain. Related Data Home Medications ?Medication ?Instructions ?Recorded ?Confirmed cholecalciferol (vitamin D3) 50 50 mcg PO DAILY 01/05/24 02/15/24 mcg (2,000 unit) capsule sour clark extract 1,000 mg mg PO 01/05/24 02/15/24 capsule (Tart Clark Extract) Previous Rx's ?Medication ?Instructions ?Recorded doxycycline hyclate 100 mg capsule 100 mg PO BID #13 caps 01/19/25 erythromycin 5 mg/gram (0.5 %) eye 0.5 inch ophthalmic-Right QID 5 01/19/25 ointment days #3.5 grams Allergies Allergy/AdvReac Type Severity Reaction Status Date / Time No Known Allergies (No Known Allergy Verified 01/19/25 17:48 Allergies*) Review of Systems Review of Systems: Yes all other systems are reviewed and are negative Constitutional: Constitutional: Denies fatigue, Denies fever(s) and Reports headache(s) Eyes: Eyes: Denies change in vision, Denies itchy eyes and Denies eye pain ENT: Denies otalgia and Reports headache(s) Integumentary/Breasts: Skin/Breast: Reports pruritus, Reports erythema, Reports rash and Reports sores Neurologic: Reports headache(s) Endocrine: Endocrine: Denies fatigue Allergic/Immunologic: Allergic/Immunologic: Denies itchy eyes PMFSH Past Medical History Attestation statement: The following information was validated with the patient. Medical History Drug addiction Alcoholism Surgical History No pertinent past surgical history Family History Family History Mother Hypertension High cholesterol Father Cancer Alcoholism Substance abuse Social History Social History Household Members: Spouse Housing: Apartment Do you presently have visiting nurse or other home services: No Alcohol intake: current Alcohol intake frequency: former alcohol drinker Patient Tobacco Use Status: Never used Tobacco Smoked in Last 30 Days: No e-Cigarette/Vaping Use: Never Used Use of substances other than those prescribed or required for medical reasons: No Advance Directives: No Advance Directives Information Provided: No Do you have a plan to hurt others: No Plan service: No Current occupational status: employed 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 Cognitive needs: No Hearing needs: No Vision needs: Yes (wear glasses) Physical Exam ED Vital Signs: Vital Signs - 24 hr 01/19/25 17:45 Temperature 98.1 F Pulse Rate 71 Respiratory Rate 18 Blood Pressure 120/75 Pulse Oximetry 97 Oxygen Delivery Method Room Air BMI result Body Mass Index 27.2 Const Other: Alert well-appearing Orientation/consciousness: patient oriented x3 HENMT Other: No right tragal tenderness, no lesions within the external ear canal, the tympanic membrane is intact, is translucent without erythema Eyes Other: No pain with extraocular eye movement, the right upper lid is subtly swollen and erythematous, there is a lesion superior to the right lid but yet inferior to the brow that is scabbed over, looks like folliculitis Resp Effort & Inspection: normal respiratory effort Cardio Other: Normal peripheral perfusion Skin Other: Dried scabbed over lesions of varying size, look like abrasions at this point with the overlying erythema, some appear as scabbed over folliculitis lesions, nothing is vesicular, everything is dry Neuro General: patient oriented x3, gait normal, no focal motor deficits and CN's II-XI intact bilaterally Psych Other: cooperative Medical Decision Making Medical Decision Making MDM Narrative: 44-year-old male who is otherwise healthy presents with facial rash x1 week. The rash started off as ?pimple like?. The rash spans from right side of forehead into the hairline and scalp, with a few lesions above the lid and at the lateral corner of the eye. Overlying erythema and subtle swelling of the upper right eyelid. No pain with extraocular eye movement. The rash is primarily pruritic, nonpainful. Denies that the lesions were ever vesicular in nature. The patient states he has outside often, he [place] the [place]. The patient does not use contact lenses. Denies ear pain. No chronic issues History: Per patient I have considered the following differential diagnoses: impetigo , folliculitis, blepharitis, conjunctivitis, preseptal cellulitis, shingles, contact dermatitis Plan: The patient has lesions are not consistent with shingles, they have never been painful they are pruritic, they do appear like drying up contact dermatitis, and that he now has developed a secondary cellulitis. He does not have eye pain, the upper lid is subtly swollen, we will cover with erythromycin, he has no risk factors for Pseudomonas. He has no pain with extraocular eye movement to suggest a preseptal cellulitis, We will also place on a course of doxycycline. Even if these were zoster lesions, which they are not, the patient is out of the window for antiviral, it is no longer efficacious he has had symptoms for over a week. No indication for labs or imaging Differential Diagnosis Differential Diagnoses: The differential diagnosis associated with the presentation includes See medical decision-making Admission/Observation Consideration of admission/observation: Escalation of care including admission/observation considered Not applicable Discharge Plan Discharge Clinical Impression: Cellulitis, Contact dermatitis Patient Disposition: Home, Self-Care Instructions: Contact Dermatitis (ED), Cellulitis (ED) Additional Instructions: The rash that you have is consistent with the a cellulitis secondary to a likely contact dermatitis. Given eye involvement, use the erythromycin ointment 4 times a day as directed. Take the doxycycline as directed. Follow up with primary care as needed. Prescriptions: New erythromycin 5 mg/gram (0.5 %) ointment 0.5 inch ophthalmic-Right QID 5 Days Qty: 3.5 0RF doxycycline hyclate 100 mg capsule 100 mg PO BID Qty: 13 0RF No Action cholecalciferol (vitamin D3) 50 mcg (2,000 unit) capsule 50 mcg PO DAILY Tart Clark Extract 1,000 mg capsule PO Print Language: Upper Sorbian
[2025-01-19] MEDS: Erythromycin Base 0.5% Oph Oin 1 GM TUBE 1 CM EYE-RIGHT (19:50)
[2025-01-19 19:53] VITALS: BP 120/75; PULSE 71; RESP 18; TEMP 36.7; O2SAT 97
== END 2025-01-19 19:54 | disposition home or self-care (01) ==
PROVIDERS: Emergency Provider Emergency Medicine Emergency Medical Services; PCP Nurse Practitioner Family
DX: L03.211 Cellulitis of face (principal); L25.9 Unspecified contact dermatitis, unspecified cause; R21 Rash and other nonspecific skin eruption
CPT/HCPCS: 99283; 99284

== ENCOUNTER 2025-02-18 07:53 | Outpatient (AMB) | payer OTHER, SELFPAY ==
--- NOTE | 2025-02-18 07:55 | A.OFFPC_ITS ---
Vital Signs 02/18/25 07:59 Height 6 ft 1 in Weight 212 lb 2 oz BMI 28.0 BP 122/70 Blood Pressure Location Lt brachial Position Sitting Respiration 12 Pulse 65 Pulse Source Pulse Oximeter Temp 97.8 F Temp Source Oral Pulse Oximetry (%) 97 Oxygen Delivery Method Room Air Intake Visit Reasons: Physical Intake Note: CPE. Good H[employer] Vendor Required: No Allergies No Known Allergies (No Known Allergies*) Allergy (Verified 02/18/25 08:06) Medication List - Last Reconciled 02/18/25 by XIANG StraussP- cholecalciferol (vitamin D3) 50 mcg PO DAILY hydroxyzine HCl 25 mg PO QID PRN pramoxine 1% (Anti-Itch (pramoxine)) topical sour clark extract (Tart Clark Extract) mg PO Tobacco use date assessed: 02/18/25 Dental Screening Dental Screen Date: 02/18/25 Did you have a dental visit in the last 12 months?: Yes Did you have a dental problem in the last 6 months where you did not have access to dental care?: No Was dental information given to patient?: Patient has dentist HPI HPI Comments History of Present Illness Details 44 y/o with substance use disorder in [place], vitamin d def Social: , employed Surgical hx: none Family hx: Mom: , brain aneurysm 58, had HTN. Dad: cancer renal, etoh abuse. Siblings: 1 sister alive and well, 1/2 sister osteoporosis All grandparents - unsure about cancer, heart disease. Maternal aunt mental health. Hospitalizations: Several detox, last and brought in 2020 Health Maintenance: Tdap 11/26/20 PSA 01/05/24 Flu declined Hearing test - passed Specialists: Counselor Optho wears glasses; exam 2024. Had to do visual field testing. Here today for CPE. Labs from 01/05/24 show electrolytes normal renal function, hemoglobin A1c 4.8% elevated total bilirubin 2.6 with normal AST and ALT, alk-phos a little bit low at 35, total protein albumin, normal B12 and folate, normal TSH, normal random microalbumin, direct LDL 109. Vit d normal, PSA normal - One-year history L foot pain, ball of foot - Foot pain on the left foot - Feels like stepping on stones - Worse after prolonged activity - Not reproducible with pressure Lower back pain: - Recent onset - Associated with lifting - Right-sided - Resolved in 36 hours w/o intervention Cellulitis of the face: - Initial presentation in December - Self-treated without initial improveme nt - Required medication - Left scarring - [facility] [place] [facility] [place] Elevated cholesterol and bilirubin: - Mild elevations noted on lab results f rom prior visit History of substance abuse: - In remission Vitamin D deficiency: - On supplementation ROS: - General: Denies significant changes in overall health. - Skin: Reports resolved cellulitis with residual scarring; denies additional skin concerns. - Musculoskeletal: Reports intermittent foot pain and recent lower back pain. - Neurological: Reports resolved headach es. - Respiratory: Denies respiratory compla ints. - Gastrointestinal: Denies problems with urination or bowel movements. Social: - Engages in regular running activities, although presently limited due to foot pain. 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 - History of substance abuse in [facility]. - Intermittent foot discomfort and back pain impact exercise routine. - No recent significant changes in diet or lifestyle reported. Today, we discussed the management of the patient's concerns including recent foot and back issues. The possibility of Portillo's neuroma was reviewed for left foot discomfort. I recommended evaluation by podiatry as a possible next step. For his history of substance use, we have reiterated his remission status positively. The patient is compliant with vitamin D supplementation, and we will continue to monitor levels. As his scarring from cellulitis is healing, no further medical intervention is required at this time. We reviewed his mild elevations in cholesterol and bilirubin as detected in previous labs without imm ediate intervention warranted but continued monitoring is advised. The patient received instructions for follow-up care and the use of the patient portal for timely appointment scheduling. Patient was given time to ask questions. All questions were answered to their satisfaction. Plan 1. Left foot pain - Podiatry referral. - Rest and symptom monitoring. 2. Lower back pain - Monitor activities. - No current intervention. 3. Cellulitis of the face - Resolved with antibiotics. - Monitor for recurrence. 4. Elevated cholesterol and bilirubin - Continue monitoring. 5. History of substance abuse - In remission. 6. Vitamin D deficiency - Continue supplementation. RTO 1 year CPE, sooner PRN Patient was informed and verbally consented to the use of an ambient scribe for clinic note documentation during this visit. [facility] Medical History (Updated 02/18/25 @ 08:31 by SHANNON Strauss) Alcoholism Drug addiction Hard of hearing Surgical History No pertinent past surgical history Family History Mother Hypertension High cholesterol Father Cancer Alcoholism Substance abuse Social History Household Members: Spouse Housing: Apartment Do you presently have visiting nurse or other home services: No 75 years or older and lives alone: No Alcohol intake: current Alcohol intake frequency: former alcohol drinker Patient Tobacco Use Status: Never used Tobacco e-Cigarette/Vaping Use: Never Used Second Hand Smoke Exposure: No service: No Current occupational status: employed 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 1. Little interest or pleasure in doing things: not at all 2. Feeling down, depressed, or hopeless: not at all 3. Trouble falling or staying asleep, or sleeping too much: not at all 4. Feeling tired or having little energy: not at all 5. Poor appetite or overeating: not at all 6. Feeling bad about yourself - or that you are a failure or have let yourself or your family down: not at all 7. Trouble concentrating on things, such as reading the newspaper or watching television: not at all 8. Moving or speaking so slowly that other people could have noticed. Or the opposite - being so fidgety or restless that you have been moving around a lot more than usual: not at all 9. Thoughts that you would be better off or of hurting yourself in some way: not at all Total score: 0 Depression Screening Interpretation: Negative Depression Screening Done: Yes 73045 - PHQ-9 Billing: Yes Source: Developed by Drs. Deon Fernandez, Carmen Mancia, Darnell Vines and colleagues, with an educational aniyah from [employer] Thrive Questionnaire Date Thrive assessed: 02/18/25 I am a: Patient What is your living situation today?: I have a steady place to live Within the past 12 months, did the food you bought not last and you didn't have the money to get more?: Never true Within the past 12 months, did you worry whether your food would run out before you got money to buy more?: Never true Do you have trouble paying for medicines?: No Do you have trouble getting transportation to medical appointments?: No Do you have trouble paying your heating and electricity bill?: No Do you have trouble taking care of your child, family member or friend?: No Do you have trouble with day-to-day activities such as bathing, preparing meals, shopping, managing finances, etc.?: No Are you currently unemployed and looking for a job?: No Are you interested in more education?: No Please select the resources that you would like help with: None Currently or been in a relationship where the following occur: No concerns reported THRIVE Score: 0 AUDIT C Alcohol Use Questionnaire (AUDIT-C) 1. How often do you have a drink containing alcohol?: Never 3. How often do you have six or more drinks on one occasion?: Never Total Score: 0 Score Reviewed/Action Taken: Yes FARIDEH-7 AMB Questionnaire FARIDEH-7 Date FARIDEH - 7 assessed: 02/18/25 Feeling nervous, anxious, or on edge: 0 = Not at all Not being able to stop or control worryin = Not at all Worrying too much about different things: 0 = Not at all Trouble relaxin = Not at all Being so restless that it is hard to sit still: 0 = Not at all Becoming easily annoyed or irritable: 0 = Not at all Feeling afraid as if something awful might happen: 0 = Not at all Total FARIDEH-7 score (0-4 normal; 5-9 mild; 10-14 moderate; 15-21 severe): 0 Source: Developed by Drs. Deon Fernandez, Carmen Mancia, Darnell Vines and colleagues, with an educational aniyah from [employer]. FARIDEH-7 Assessment Billing FARIDEH-7 Assessment Tool: FARIDEH-7 Assessment 98667 Physical exam (Primary Care) Vital Signs: Last Vital Signs Temp 97.8 F 02/18/25 07:59 Pulse 65 02/18/25 07:59 Resp 12 02/18/25 07:59 BP 122/70 02/18/25 07:59 Pulse Ox 97 02/18/25 07:59 Oxygen Delivery Method Room Air 02/18/25 07:59 BMI result Body Mass Index 28.0 Tobacco/Smoking Status: Tobacco use Status Tobacco use date assessed 02/18/25 02/18/25 08:00 Patient Tobacco Use Status Never used Tobacco 02/18/25 08:00 e-Cigarette/Vaping Use Never Used 02/18/25 08:00 PHQ-9: PHQ-9 Score PHQ-9: Total score 0 02/18/25 08:06 Depression Screening Interpretation: Negative Thrive Assessment: Date of Thrive Assessment Date Thrive assessed 02/18/25 02/18/25 08:00 Currently or been in a relationship where the following occur: No concerns reported Const Other: General: Well developed, well nourished, in no acute distress. Appears stated age. Head: Normocephalic, atraumatic. Eyes: Pupils are equal, round and reactive to light and accommodation. Conjunctivae are clear. Vision grossly normal. Ears: TMs clear AU, EACS WNL Nose: Patent, without discharge. Mouth: There are no ulcers or lesions noted. No inflammation, no post nasal drip, no plaques nor exudates. Neck: Supple, no adenopathy or thyromegaly. Lungs: Clear to auscultation bilaterally. No rales, rhonchi or wheeze noted. Good air flow in all dobbs. Heart: Regular rate and rhythm. No murmurs, click, rubs or gallops are noted. Abdomen: Bowel sounds present in all quadrants. The abdomen is soft, nontender, with no masses or organomegaly noted. No hernias are noted. Musculoskeletal: Joints are nontender, without swelling, redness, or effusions. Range of motion is observed to be normal. Pulses: Peripheral pulses are equal and palpable bilaterally. Extremities: No clubbing, cyanosis nor edema is noted. Pain at arlin of 2nd toe on the Left foot w/palpation Neurologic: Gait and station normal. Cranial Nerves 2-12 intact. Motor strength grossly symmetrical and intact. No sensory loss. Balance normal. Skin: No rashes, ulcers, or lesions noted. Turgor is good. Skin color is good. Hair and nails are without abnormalities. Psych: Normal eye contact, affect and mood appropriate, and normal interactions. Patient is alert and appropriate to context. 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.11 Family history of brain aneurysm Z82.49 Normal hearing exam Z01.10 Additional Codes FARIDEH-7 Assessment Billing - FARIDEH-7 Assessment Tool: FARIDEH-7 Assessment 01415 ([id number]) PHQ-9 - 10542 - PHQ-9 Billing: Yes ([id number]) Assessment & Plan Assessment & Plan (1) Encounter for general adult medical examination without abnormal findings: Onset Date: ~02/18/25 Code(s): Z00.00 - Encounter for general adult medical examination without abnormal findings Category: Medical (2) Laboratory exam ordered as part of routine general medical examination: Code(s): Z00.00 - Encounter for general adult medical examination without abnormal findings Category: Medical (3) Vitamin D deficiency: Code(s): E55.9 - Vitamin D deficiency, unspecified Category: Medical (4) Left foot pain: Code(s): M79.672 - Pain in left foot Category: Medical (5) Influenza vaccination declined: Onset Date: ~02/18/25 Code(s): Z28.21 - Immunization not carried out because of patient refusal Category: Medical (6) Alcohol dependence: Comment: in remission Code(s): F10.20 - Alcohol dependence, uncomplicated Category: Medical Qualifiers: Substance use status: in remission Qualified Code(s): F10.21 - Alcohol dependence, in remission (7) Cocaine abuse in remission: Comment: in remission Code(s): F14.11 - Cocaine abuse, in remission Category: Medical (8) Family history of brain aneurysm: Comment: Mom Pt with negative CTA of brain 2023 Code(s): Z82.49 - Family history of ischemic heart disease and other diseases of the circulatory system Category: Medical (9) Normal hearing exam: Onset Date: ~2023 Code(s): Z01.10 - Encounter for examination of ears and hearing without abnormal findings Category: Medical Plan . Orders: Orders Comprehensive Met. Panel Today E55.9 - Vitamin D deficiency, unspecified, Z00.00 - Encounter for general adult medical examination without abnormal findings Hemoglobin A1c Today E55.9 - Vitamin D deficiency, unspecified, Z00.00 - Encounter for general adult medical examination without abnormal findings Vitamin B12 and Folate Today E55.9 - Vitamin D deficiency, unspecified, Z00.00 - Encounter for general adult medical examination without abnormal findings Vitamin D 25-OH Total Today E55.9 - Vitamin D deficiency, unspecified, Z00.00 - Encounter for general adult medical examination without abnormal findings Prostate Specific Antigen Scr Today Z00.00 - Encounter for general adult medical examination without abnormal findings Complete Blood Count no Diff Today E55.9 - Vitamin D deficiency, unspecified, Z00.00 - Encounter for general adult medical examination without abnormal findings Lipid Panel Today E55.9 - Vitamin D deficiency, unspecified, Z00.00 - Encounter for general adult medical examination without abnormal findings Microalbumin, Random (w Creat) Today E55.9 - Vitamin D deficiency, unspecified, Z00.00 - Encounter for general adult medical examination without abnormal findings TSH reflex Free T4 Today E55.9 - Vitamin D deficiency, unspecified, Z00.00 - Encounter for general adult medical examination without abnormal findings Referrals Podiatry Referral M79.672 - Pain in left foot Medications: Discontinued doxycycline hyclate Discontinued Reason: Patient Completed Course 100 mg PO BID 13 caps 0RF erythromycin Discontinued Reason: Patient Completed Course 0.5 inches ophthalmic-Right QID 5 days 3.5 grams 0RF Patient Instructions: Health screenings for men You should visit your health care provider regularly, even if you feel healthy. The purpose of these visits is to: Screen for medical issues Assess your risk for future medical problems Encourage a healthy lifestyle Update vaccinations and other preventive care services Help you get to know your provider in case of an illness Information Even if you feel fine, you should still see your provider for regular checkups. These visits can help you avoid problems in the future. For example, the only way to find out if you have high blood pressure is to have it checked regularly. High blood sugar and high cholesterol level also may not have any symptoms in the early stages. Simple blood tests can check for these conditions. There are specific times when you should see your provider or receive specific health screenings. The [place] Preventive Services Task Force publishes a list of recommended screenings. Below are screening guidelines for men ages 40 to 64. BLOOD PRESSURE SCREENING Have your blood pressure checked at least once every year. Watch for blood pressure screenings in your area. Ask your provider if you can stop in to have your blood pressure checked. Ask your provider if you need your blood pressure checked more often if: You have diabetes, heart disease, kidney problems, or are overweight or have certain other health conditions You have a first-degree relative with high blood pressure You are Black Your blood pressure top number is from 120 to 129 mm Hg, or the bottom number is from 70 to 79 mm Hg If the top number is 130 mm Hg or greater or the bottom number is 80 mm Hg or greater, this is considered stage 1 hypertension. Schedule an appointment with your provider to learn how you can lower your blood pressure. Effects of age on blood pressure CHOLESTEROL SCREENING Cholesterol screening should begin at age 35 for men with no known risk factors for coronary heart disease. Repeat cholesterol screening should take place: Every 5 years for men with normal cholesterol levels More often if changes occur in lifestyle (including weight gain and diet) More often if you have diabetes, heart disease, kidney problems, or certain other conditions COLORECTAL CANCER SCREENING If you are under age 45, talk to your provider about getting screened. You may need to be screened if you have a strong family history of colon cancer or polyps. Screening may also be considered if you have risk factors such as a history of inflammatory bowel disease or polyps. If you are age 45 to 75, you should be screened for colorectal cancer. There are several screening tests available: A stool-based fecal occult blood (gFOBT) or fecal immunochemical test (FIT) every year A stool sDNA test every 1 to 3 years Flexible sigmoidoscopy every 5 years or every 10 years with stool testing FIT done every year CT colonography (virtual colonoscopy) every 5 years Colonoscopy every 10 years You may need a colonoscopy more often if you have risk factors for colorectal cancer, such as: Ulcerative colitis A personal or family history of colorectal cancer A history of growths in your colon called adenomatous polyps DENTAL EXAM Go to the dentist once or twice every year for an exam and cleaning. Your dentist will evaluate if you have a need for more frequent visits. DIABETES SCREENING All adults who do not have risk factors for diabetes should be screened starting at age 35 and repeated every 3 years. If you have other risk factors for diabetes, such as a first degree relative with diabetes, overweight or obesity, high blood pressure, prediabetes, or a history of heart disease, you may be tested more often. If you are overweight and have other risk factors, such as high blood pressure and are planning to become , screening is recommended. EYE EXAM Have an eye exam every 2 to 4 years ages 40 to 54 and every 1 to 3 years ages 55 to 64. Your provider may recommend more frequent eye exams if you have vision problems or glaucoma risk. Have an eye exam that includes an examination of your retina (back of your eye) at least every year if you have diabetes. IMMUNIZATIONS Commonly needed vaccines include: Flu shot: get one every year COVID-19 vaccine: ask your provider what is best for you Tetanus-diphtheria and acellular pertussis (Tdap) vaccine: have as one of your tetanus-diphtheria vaccines if you did not receive it as an adolescent Tetanus-diphtheria: have a booster (or Tdap) every 10 years Varicella vaccine: receive 2 doses if you never had chickenpox or the varicella vaccine and were born in 1980 or after Hepatitis B vaccine: receive 2, 3, or 4 doses, depending on your exact circumstances, if you did not receive these as a child or adolescent, until age 59 Shingles (herpes zoster) vaccine: at or after age 50 Ask your provider if you should receive other immunizations, especially if you have certain medical conditions, such as diabetes or are at increased risk for some diseases such as pneumonia. INFECTIOUS DISEASE SCREENING Screening for hepatitis C: all adults ages 18 to 79 should get a one-time test for hepatitis C. Screening for human immunodeficiency virus (HIV): all people ages 15 to 65 should get a one-time test for HIV. Depending on your lifestyle and medical history, you may need to be screened for infections such as syphilis, chlamydia, and other infections. LUNG CANCER SCREENING You should have an annual screening for lung cancer with low-dose computed tomography (LDCT) if: You are age 50 to 80 years AND You have a 20 pack-year smoking history AND You currently smoke or have quit within the past 15 years OSTEOPOROSIS SCREENING If you are age 50 to 64 and have risk factors for osteoporosis, you should discuss screening with your provider. Risk factors can include long-term steroid use, low body weight, smoking, heavy alcohol use, having a fracture after age 50, or a family history of hip fracture or osteoporosis. Osteoporosis PHYSICAL EXAM All adults should visit their provider from time to time, even if they are healthy. The purpose of these visits is to: Screen for diseases Assess risk of future medical problems Encourage a healthy lifestyle Update vaccinations and other preventive care services Maintain a relationship with a provider in case of an illness Your height, weight, and body mass index (BMI) should be checked at every exam. During your exam, your provider may ask you about: Depression and anxiety Diet and exercise Alcohol and tobacco use Safety, such as use of seat belts and smoke detectors Your medicines and risk for interactions PROSTATE CANCER SCREENING If you're 55 through 69 years old, before having the test, talk to your provider about the pros and cons of having a PSA test. Ask about: Whether screening decreases your chance of dying from prostate cancer. Whether there is any harm from prostate cancer screening, such as side effects from testing or overtreatment of cancer when discovered. Whether you have a higher risk of prostate cancer than others. If you are age 55 or younger, screening is not generally recommended. You should talk with your provider about if you have a higher risk for prostate cancer. Risk factors include: Having a family history of prostate cancer (especially a brother or father) Being If you choose to be tested, the PSA blood test is repeated over time (yearly or less often), though the best frequency is not known. Prostate examinations are no longer routinely done on men with no symptoms. Prostate cancer SKIN EXAM Your provider may check your skin for signs of skin cancer, especially if you're at high risk. People at high risk include those who have had skin cancer before, have close relatives with skin cancer, or have a weakened immune system. TESTICULAR EXAM The [place] Preventive Services Task Force (USPSTF) now recommends against performing testicular self-exams. Doing testicular self-exams has been shown to have little to no benefit.
[2025-02-18 07:59] VITALS: BP 122/70; PULSE 65; RESP 12; TEMP 36.6; O2SAT 97; BMI 28.0
== END 2025-02-18 08:27 | disposition home or self-care (01) ==
LOC: HO.HMCFM 07:54
PROVIDERS: PCP Nurse Practitioner Family; Visit Provider Nurse Practitioner Family
DX: Z00.00 Encounter for general adult medical examination without abnormal findings (principal); E55.9 Vitamin D deficiency, unspecified; M79.672 Pain in left foot; F10.21 Alcohol dependence, in remission; F14.11 Cocaine abuse, in remission; Z28.21 Immunization not carried out because of patient refusal; Z82.49 Family history of ischemic heart disease and other diseases of the circulatory system; Z01.10 Encounter for examination of ears and hearing without abnormal findings

== ENCOUNTER 2025-02-18 07:53 | Outpatient (REF) | payer OTHER, SELFPAY ==
[2025-02-18 11:15] LABS: Hematocrit 43.6 % (42.0-52.0); Hemoglobin 15.0 g/dl (14.0-18.0); Mean Corpuscular HGB Conc 34.4 g/dl (31.0-36.0); Mean Corpuscular Hemoglobin 31.1 pg (27.0-33.0); Mean Corpuscular Volume 90.5 fL (80.0-98.0); NRBC Abs Auto 0.000 X10*3/uL (0.0-0.012); NRBC Pct Auto 0.0 /100WBC (0.0-0.2); Platelet Count 149 X10*3/uL (160-400); Red Blood Count 4.82 X10*6/uL (4.60-5.80); White Blood Count 5.3 X10*3/uL (4.8-10.8)
[2025-02-18 11:49] LABS: Alanine Aminotransferase 25 U/L (0-40); Albumin Level 4.4 g/dL (3.5-5.0); Alkaline Phosphatase 37 U/L (39-117); Anion Gap 12 (12-20); Aspartate Amino Transferase 33 U/L (5-37); Blood Urea Nitrogen 13 mg/dL (9-16); Calcium 8.9 mg/dL (8.4-10.2); Carbon Dioxide 29 mmol/L (22-29); Chloride 102 mmol/L (96-108); Cholesterol 163 mg/dL (<200); Estimated Glomerular Filt Rate > 60; HDL Cholesterol 54 mg/dL (>40); Potassium 4.2 mmol/L (3.3-5.1); Sodium 139 mmol/L (135-145); Total Protein 7.2 g/dL (6.5-8.0); Triglycerides 67 mg/dL (<150)
[2025-02-18 11:58] LABS: Folate 11.2 ng/mL (> or = 4.0); Vitamin B12 409 pg/mL (200-900)
== END 2025-02-18 07:54 | disposition home or self-care (01) ==
LOC: HO.WFDLDS 07:53
PROVIDERS: PCP Nurse Practitioner Family; Visit Provider Nurse Practitioner Family
DX: Z00.00 Encounter for general adult medical examination without abnormal findings (principal); E55.9 Vitamin D deficiency, unspecified; M79.672 Pain in left foot; M54.50 Low back pain, unspecified; L03.211 Cellulitis of face; E78.00 Pure hypercholesterolemia, unspecified; R79.89 Other specified abnormal findings of blood chemistry; F10.21 Alcohol dependence, in remission; F14.11 Cocaine abuse, in remission; Z82.49 Family history of ischemic heart disease and other diseases of the circulatory system; Z12.5 Encounter for screening for malignant neoplasm of prostate; Z28.21 Immunization not carried out because of patient refusal
CPT/HCPCS: 36415; 80053; 80061; 82043; 82306; 82570; 82607; 82746; 83036; 84153; 84443; 85027; 96127

== ENCOUNTER 2025-03-25 20:26 | Inpatient (IN) | payer OTHER, SELFPAY ==
--- NOTE | 2025-03-25 | ECG_ITS ---
Test Reason : tacycardy Blood Pressure : */* mmHG Vent. Rate : 106 BPM Atrial Rate : 106 BPM P-R Int : 168 ms QRS Dur : 92 ms QT Int : 330 ms P-R-T Axes : 67 27 84 degrees QTcB Int : 438 ms Sinus tachycardia Nonspecific T wave abnormality Abnormal ECG No previous ECGs available Referred By: Karissa Barrientos Electronically Signed By: Mathew Khan
[2025-03-25 20:40] VITALS: BP 138/97; BP 164/108; PULSE 112; PULSE 113; RESP 16; TEMP 36.8; O2SAT 96; O2SAT 98; BMI 26.3
[2025-03-25 20:45] VITALS: BP 138/97; PULSE 113; RESP 16; TEMP 36.8; O2SAT 96
--- NOTE | 2025-03-25 21:29 | ED_ITS ---
HPI - Psych General Chief Complaint: ETOH/Substance Use Stated Complaint: drinking 3 weeks straight Time Seen by Provider: 03/25/25 20:46 Source: patient and EMS Mode of arrival: EMS Limitations: no limitations History of Present Illness ED Provider: Dr. Karissa Barrientos HPI Narrative: patient comes to the emergency room complaining of abdominal pain status post binge drinking vodka for 3 weeks and also requesting detox. Patient states that he has been struggling with alcohol dependence for about 4 years, has been in and out of detox. This time, patient had a period of 3 weeks of binge drinking as much as he could . patient reports that he had alcohol prior to arriving to the ED. Related Data Home Medications ?Medication ?Instructions ?Recorded ?Confirmed cholecalciferol (vitamin D3) 50 50 mcg PO DAILY 02/18/25 mcg (2,000 unit) capsule sour clark extract 1,000 mg mg PO 01/05/24 02/18/25 capsule (Tart Clark Extract) Allergies Allergy/AdvReac Type Severity Reaction Status Date / Time No Known Allergies (No Known Allergy Verified 03/25/25 20:48 Allergies*) Review of Systems 2 Review of Systems: Constitutional : No Weight loss, No Fever, No Chills, No Night Sweats, No Fatigue, No Malaise ENT/Mouth : No Hearing loss, No Ear Pain, No Nasal Congestion, No Sinus Pain, No Hoarseness, No sore throat, No Rhinorrhea, No Swallowing Difficulty Eyes: No Eye Pain, No Swelling, No Redness, No Foreign Body, No Discharge, No Vision Changes Cardiovascular : No Chest Pain, No SOB, No Dyspnea on Exertion, No Orthopnea, No Edema, No Palpitations Respiratory : No Cough, No Sputum, No Wheezing, No Smoke Exposure, No Dyspnea Gastrointestinal : Complaining of nausea, No Vomiting, No Diarrhea, No Constipation, complaining of Epigastric abdominal pain. Genitourinary : no irregular bleeding, No Dysuria, No Urinary Frequency, No Hematuria, No Urinary Incontinence, No Urgency, No Flank Pain, No Urinary Flow Changes, No Hesitancy Musculoskeletal : No joint pain, No Myalgias, No Joint Swelling Skin : No Skin Lesions, No rash Neuro : No Weakness, No Numbness, No Paresthesias, No Loss of Consciousness, No Dizziness, No Headache Psych : No Anxiety/Panic, No Depression, denies SI or HI, reports multiple life stressors, admits to alcohol abuse and dependence Heme/Lymph: No Bruising, No Bleeding,No Lymphadenopathy Endocrine : No Polyuria, No Polydipsia, No Temperature Intolerance [facility] Past Medical History Medical History Hard of hearing Drug addiction Alcoholism Surgical History No pertinent past surgical history Family History Family History Mother Hypertension High cholesterol Father Cancer Alcoholism Substance abuse Social History Social History Household Members: Spouse Housing: Apartment Do you presently have visiting nurse or other home services: No Alcohol intake: current Alcohol intake frequency: 3 or more drinks per day Patient Tobacco Use Status: Never used Tobacco Smoked in Last 30 Days: No e-Cigarette/Vaping Use: Never Used Second Hand Smoke Exposure: No Use of substances other than those prescribed or required for medical reasons: No Advance Directives: No Advance Directives Information Provided: Yes Do you have a plan to hurt others: No Plan service: No Current occupational status: employed 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 Oriented X3. No acute distress. Eyes: Pupils equal, round and reactive to light. ENT: Pharynx normal. Neck: Normal inspection. Neck supple. No lymph nodes noted. No crepitus CVS: Normal heart rate and rhythm. Pulses normal. Normal S1 and S2 Respiratory: No respiratory distress. Breath sounds normal. No Wheezing. No rales Abdomen: Soft and nontender. No rigidity. No distention. Skin: Skin warm and dry. Normal skin color. Normal skin turgor. Extremities: No lower extremity edema. No Lacerations. No Rash Neuro: Oriented X 3. No motor deficit. No sensory deficit. Moving all extremities. No slurred speech. CN 2 through 12 grossly intact Psych: calm, cooperative, flat affect Vital Signs: Vital Signs: Last Vital Signs Temp 98.1 F 03/26/25 00:30 Pulse 113 H 03/26/25 00:30 Resp 18 03/26/25 00:30 BP 135/88 03/26/25 00:30 Pulse Ox 96 03/26/25 00:30 O2 Del Method Room Air 03/26/25 00:30 BMI result Body Mass Index 26.3 Course Course Course Narrative: patient is awake, alert and oriented x3, coherent. Patient admits to heavy alcohol drinking and wants detox. Denies SI or HI I discussed with the patient that we will 1st claim her medically, and then we will do consult to refer him to detox. Patient agrees with plan patient is getting GI cocktail, Pepcid, Ativan, all of patient's labs pending Medications Administered Discontinued Medications Generic Name Dose Route Start Last Admin Trade Name Lois PRN Reason Stop Dose Admin Al Hydroxide/Mg Hydroxide 30 ml 03/25/25 21:21 03/25/25 22:26 Magnesium Hydrox/Alum Hydrox 30 Ml Oral.Susp PO 03/25/25 21:22 30 ml ONCE ONE Administration Famotidine 20 mg 03/25/25 21:21 03/25/25 22:27 Famotidine 20 Mg Tablet PO 03/25/25 21:22 20 mg ONCE ONE Administration Lidocaine HCl 15 ml 03/25/25 21:21 03/25/25 22:28 Lidocaine Hcl Viscous 2 % 15 Ml Solution MUCOUS MEM 03/25/25 21:22 15 ml ONCE ONE Administration Lorazepam 2 mg 03/25/25 21:21 03/25/25 22:27 Lorazepam 1 Mg Tablet PO 03/25/25 21:22 2 mg ONCE ONE Administration Medical Decision Making Medical Decision Making [facility] Narrative: my interpretation of labs: in patient's hematology, patient's platelets are decreased, 101 at this time, patient has chronically elevated LFTs secondary to alcohol intake no significant abnormality patient's hematology and chemistry, lipase is 91, no significant tenderness to palpation in the abdomen. Patient's symptoms improved after a GI cocktail. Likely alcoholic gastritis. Urinalysis negative for UTI negative for drugs of abuse, ETOH level 411 at 21:25 patient started having withdrawal symptoms at 01:00, patient is starting to hallucinate, patient is seeing cats in the room , becoming very anxious, tachycardic patient was started on the phenobarb protocol I discussed the patient with Dr. Glover from the Medicine team, patient being admitted patient and his significant other agree with plan Differential Diagnosis Differential Diagnoses: The differential diagnosis associated with the presentation includes ( alcohol intoxication, alcohol dependence, anxiety, depression, polysubstance cm) Admission/Observation Consideration of admission/observation: Escalation of care including admission/observation considered ( given patient's past medical history and presentation, observation considered) Lab Data MDM Lab Attestation statement: I reviewed the patient's lab results. 03/25/25 21:24 03/25/25 21:24 Labs: Lab Results 03/25/25 03/26/25 Range/Units 21:24 00:14 WBC 4.7 L (4.8-10.8) X10*3/uL RBC 5.00 (4.60-5.80) X10*6/uL Hgb 15.8 (14.0-18.0) g/dl Hct 43.8 (42.0-52.0) % MCV 87.6 (80.0-98.0) fL MCH 31.6 (27.0-33.0) pg MCHC 36.1 H (31.0-36.0) g/dl RDW 13.1 (11.0-16.0) % Plt Count 101 L D (160-400) X10*3/uL MPV 8.8 L (9.4-12.4) fL Immature Gran % (Auto) 0.4 (0.0-0.4) % Neut % (Auto) 61.5 (45-73) % Lymph % (Auto) 31.6 (20-40) % [place] % (Auto) 5.7 (2-11) % Eos % (Auto) 0.4 (0-4) % Baso % (Auto) 0.4 (0-2) % Lymph # (Auto) 1.5 (1.2-4.9) X10*3/uL [place] # (Auto) 0.3 (0.1-1.2) X10*3/uL Eos # (Auto) 0.0 (0.0-0.4) X10*3/uL Baso # (Auto) 0.0 (0.0-0.2) X10*3/uL Abs Immat Gran (auto) 0.02 (0.00-0.03) X10*3/uL Absolute Neuts (auto) 2.9 (2.0-8.3) x10*3/uL Absolute Nucleated RBC 0.000 (0.0-0.012) X10*3/uL Nucleated RBC % (auto) 0.0 (0.0-0.2) /100WBC Sodium 141 (135-145) mmol/L Potassium 3.8 (3.3-5.1) mmol/L Chloride 102 (96-108) mmol/L Carbon Dioxide 23 (22-29) mmol/L Anion Gap 20 (12-20) BUN 11 (9-16) mg/dL Creatinine 0.65 (0.5-1.4) mg/dL Estim Creat Clear Calc 167.3 Estimated GFR > 60 Random Glucose 91 (60-115) mg/dL Calcium 8.6 (8.4-10.2) mg/dL Total Bilirubin 1.7 H (0.0-1.0) mg/dL AST 220 H (5-37) U/L ALT 139 H (0-40) U/L Alkaline Phosphatase 95 (39-117) U/L Total Protein 8.0 (6.5-8.0) g/dL Albumin 4.5 (3.5-5.0) g/dL Lipase 91 H (8-78) U/L Urine Color Yellow Urine Appearance Clear Urine pH 5.5 (5.0-9.0) Ur Specific [place] 1.020 (1.005-1.025) Urine Protein 30 (1+) H (Neg-Trace) mg/dL Urine Glucose (UA) Negative (Negative) mg/dL Urine Ketones 80 (Negative) mg/dL Urine Blood Negative (Negative) Urine Nitrite Negative (Negative) Ur Leukocyte Esterase Negative (Negative) Urine RBC 0-2 (0-2) /HPF Urine WBC 0-5 (0-5) /HPF Ur Squamous Epith Cells 0-2 (0-2) /HPF Urine Bacteria None Seen (None Seen) Hyaline Casts 3-5 (0-2) /LPF Urine Opiates Screen Not Detected (Not Detect) Ur Buprenorphine Scrn Not Detected (Not Detect) ng/mL Ur Oxycodone Screen Not Detected (Not Detect) ng/mL Urine Methadone Screen Not Detected (Not Detect) ng/mL Urine Fentanyl Screen Not Detected (Not Detect) Ur Barbiturates Screen Not Detected (Not Detect) Ur Phencyclidine Scrn Not Detected (Not Detect) Ur Amphetamines Screen Not Detected (Not Detect) U Benzodiazepines Scrn Not Detected (Not Detect) Urine Cocaine Screen Not Detected (Not Detect) U Marijuana (THC) Screen Not Detected (Not Detect) Ethyl Alcohol 411 H* mg/dL Critical Care Time Critical Care Time Critical Care Time: Yes Total Critical Care Time: 50 Attestation: I have personally provided critical care time. Time includes review of lab data, radiology results, discussion with consultants, and monitoring for potential decompensation. Intervention performed as documented. Discharge Plan Discharge Clinical Impression: Alcohol abuse, Abdominal pain, Alcoholic gastritis, Alcohol withdrawal Patient Disposition: Admitted As Inpatient Print Language: Bulgarian
[2025-03-25 21:34] LABS: MANUAL DIFF FLAG NO
[2025-03-25 21:35] LABS: Hematocrit 43.8 % (42.0-52.0); Hemoglobin 15.8 g/dl (14.0-18.0); Imm Gran Abs Auto 0.02 X10*3/uL (0.00-0.03); Imm Gran Pct Auto 0.4 % (0.0-0.4); Lymphocytes Absolute Auto 1.5 X10*3/uL (1.2-4.9); Mean Corpuscular HGB Conc 36.1 g/dl (31.0-36.0); Mean Corpuscular Hemoglobin 31.6 pg (27.0-33.0); Mean Corpuscular Volume 87.6 fL (80.0-98.0); NRBC Abs Auto 0.000 X10*3/uL (0.0-0.012); NRBC Pct Auto 0.0 /100WBC (0.0-0.2); Platelet Count 101 X10*3/uL (160-400); Red Blood Count 5.00 X10*6/uL (4.60-5.80); White Blood Count 4.7 X10*3/uL (4.8-10.8)
[2025-03-25 21:50] LABS: Alanine Aminotransferase 139 U/L (0-40); Albumin Level 4.5 g/dL (3.5-5.0); Alkaline Phosphatase 95 U/L (39-117); Anion Gap 20 (12-20); Aspartate Amino Transferase 220 U/L (5-37); Blood Urea Nitrogen 11 mg/dL (9-16); Calcium 8.6 mg/dL (8.4-10.2); Carbon Dioxide 23 mmol/L (22-29); Chloride 102 mmol/L (96-108); Creatinine Clr Calc Pharmacy 167.3; Estimated Glomerular Filt Rate > 60; Potassium 3.8 mmol/L (3.3-5.1); Sodium 141 mmol/L (135-145); Total Protein 8.0 g/dL (6.5-8.0)
[2025-03-25] MEDS: Magnesium Hydrox/Alum Hydrox 30 ML ORAL.SUSP PO (22:26)
[2025-03-25] MEDS: Lidocaine HCl Viscous 2 % 15 ML SOLUTION MUCOUS MEM (22:28)
[2025-03-25 23:21] LABS: Lipase 91 U/L (8-78)
[2025-03-26] VITALS (9 sets, daily range): BP systolic 106–149; BP diastolic 68–90; PULSE 76–113; RESP 11–20; TEMP 36.1–36.9; O2SAT 96–99; BMI 27.1
[2025-03-26 00:23] LABS: Appearance Urine Clear; Glucose Urine UA Negative (Negative); PH 5.5 (5.0-9.0); Specific Gravity - Urine 1.020 (1.005-1.025); UMIC TRIGGER UACC YES
[2025-03-26 00:43] LABS: Cannabinoid Screen Urine Not Detected (Not Detect)
--- NOTE | 2025-03-26 01:15 | P.HPHOSP_ITS ---
History of Present Illness Date of Service: 03/26/25 Attending physician on admission: Dada Gomez Chief Complaint: abd pain s/p binge drinking Patient is a 44-year-old male with past medical history substance use disorder in remission, alcohol use disorder stopped in 2020 with recurrence 1 month ago, cellulitis of face, vitamin-D deficiency was BIBA after a 2 week binge of alcohol using vodka, approximately 10 1.75 L bottles over this period of time due to stress at work and in life. Patient's spouse had recently left home to live with her parents for the last 2 weeks due to patient's drinking. Patient did reach out to his spouse today saying? I do not want to ?. During this time, the longer the patient went without alcohol, withdrawal symptoms started sooner than expected and patient did not want experienced these symptoms. Spouse is currently in the process of filing a section 35 later today at 09:00. Patient has had issues similar to this prior to 2020 and was in a 16 month rehab and has been sober since then. Patient currently denies any suicidal ideations or homicidal ideations but was hallucinating in the ED, seeing cats in the curtains, per ED provider. Pt is currently able to follow commands and protect his airway. Currently patient has no legal issues pending. Patient has received a section 12 in the past. Spouse is committed to supporting her through this difficult time. Spouse indicates that patient has a adult daughter from a previous relationship that is currently away at college and patient has been dealing with limited communication and interaction. Patient also expressing how the loss of his parents continues to affect him especially during the holidays. Patient has not been diagnosed formally with any psychiatric problems including depression or anxiety. Up until a month ago patient was an avid runner and currently complains of lower calf pain B. patient has been extremely sedentary over the last 2 weeks per patient's spouse. Spouse denies any injuries, falls. Patient denies any chest pain, shortness of breath at rest but has been having nausea and vomiting but no obvious aspiration. Patient reports mild abdominal pain midepigastric area but denies any reflux. Patient currently has a mild leukopenia, platelet count of a 101 K, lipase 91, T bili 1.7, AST 220, ALT 139,ALK PHOS 95. MG, LA pending. UA +1 protein otherwise negative for signs of UTI. Patient is started on phenobarbital protocol in the ED. Patient currently tolerating p.o. intake and is started on a clear diet. Review of Systems 2 Review of Systems: Patient denies any chest pain, shortness of breath at rest or with exertion, but reports midepigastric abdominal pain with intermittent nausea and episodes of vomiting prior to arrival. Patient denies any headache or visual changes. Patient is reporting upper calf discomfort bilaterally. Patient reports that he was not avid runner up until 1 month prior. Patient denies any recent falls or injuries. Yes all other systems are reviewed and are negative [facility] Medical History (Updated 03/26/25 @ 02:28 by Jess Ayers) Alcoholic gastritis Cocaine abuse in remission Family history of brain aneurysm Vitamin D deficiency Hard of hearing Drug addiction Alcoholism Cognitive capacity: Alert and orientated x3 Functional capacity: independent ambulation Family History (Updated 03/26/25 @ 02:14 by ASHU Hernandez-OMEGA) Mother Hypertension High cholesterol Brain aneurysm Father Cancer Alcoholism Substance abuse Surgical History No pertinent past surgical history Social History Household Members: Spouse Housing: Apartment Do you presently have visiting nurse or other home services: No Alcohol intake: current Alcohol intake frequency: 3 or more drinks per day Patient Tobacco Use Status: Never used Tobacco Smoked in Last 30 Days: No e-Cigarette/Vaping Use: Never Used Second Hand Smoke Exposure: No Use of substances other than those prescribed or required for medical reasons: No Advance Directives: No Advance Directives Information Provided: Yes Do you have a plan to hurt others: No Plan service: No Current occupational status: employed 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 Cognitive needs: No Hearing needs: No Vision needs: Yes (wear glasses) Ebola Risk: Travel/Contact With Anyone From Affected Area/s: No Has Patient Experienced Ebola Symptoms: No Meds Allergies Allergy/AdvReac Type Severity Reaction Status Date / Time No Known Allergies (No Known Allergy Verified 03/25/25 20:48 Allergies*) Active Medications: Current Medications Acetaminophen (Acetaminophen 325 Mg Tablet) 650 mg PO Q6H PRN PRN Reason: Pain, Mild 1-3,fever,headache Albuterol/Ipratropium (Albuterol/Iprat 2.5/0.5mg 3 Ml Ampul.Neb) 3 ml INHALE Q4H PRN PRN Reason: Shortness of Breath/Wheezing Calcium Carbonate (Calcium Carbonate 750 Mg Tab.Chew) 750 mg PO Q4H PRN PRN Reason: Heartburn Enoxaparin Sodium (Enoxaparin Sodium 40 Mg/0.4 Ml Syringe) 40 mg SUBCUT DAILY JONATHAN Magnesium Hydroxide (Milk Of Magnesia 30 Ml Oral.Susp) 30 ml PO DAILY PRN PRN Reason: Constipation Melatonin (Melatonin 3 Mg Tablet) 6 mg PO BEDTIME PRN PRN Reason: Insomnia Ondansetron HCl (Ondansetron Hcl 4 Mg/2 Ml Vial) 4 mg IVPUSH Q8H PRN PRN Reason: Nausea and Vomiting Pharmacy Consult (Consult Rx Etoh Phenob Im/Po) 1 each MISCELLANE ONCE PRN; Protocol PRN Reason: Consult order Polyethylene Glycol (Polyethylene Glycol 3350 17 Gm Powd.Pack) 17 gm PO DAILY PRN PRN Reason: Constipation Senna (Sennosides 8.6 Mg Tablet) 17.2 mg PO BEDTIME JONATHAN Sodium Chloride (0.9 % Sodium Chloride Flush 3 Ml Syringe) 3 ml IVFLUSH QSHIFT [facility] Home Medications ?Medication ?Instructions ?Recorded ?Confirmed ?Last Taken ?Type cholecalciferol (vitamin D3) 50 50 mcg PO DAILY 02/18/25 Unknown History mcg (2,000 unit) capsule sour clark extract 1,000 mg mg PO 01/05/24 02/18/25 U nknown History capsule (Tart Clark Extract) Physical Exam 2 Vital Signs and Narrative: Vital Signs: Last Vital Signs Temp 98.1 F 03/26/25 00:30 Pulse 113 H 03/26/25 00:30 Resp 18 03/26/25 00:30 BP 135/88 03/26/25 00:30 Pulse Ox 96 03/26/25 00:30 O2 Del Method Room Air 03/26/25 00:30 BMI result Body Mass Index 26.3 Alert and orientated X3, able to participate in interview and protect airway Neuro: CN II-X11 intact, no deficits, visual acuity intact EYES: PERRLA, EOM intact, sclerae nonicteric, conjunctiva pink ENT: hearing intact, no issues with swallowing, uvula midline, lips moist, nares patent no epistaxis Cardiac: S1 S2 RRR, tachycardic 110, no murmur, no JVD, no edema in Lower ext Pulmonary: lungs clear to auscultation B Abdominal: BS active in all 4 quadrants, no guarding, tenderness, rebounding MSK: strength 5/5 upper and lower extremities : no CVA tenderness no bladder distension Extremities: no edema in lower extremities, PT and DP pulses palpable +2 Psych: mood stable, judgement and insight fair Skin: No new rashes or lesions Results Labs 03/25/25 21:24 03/25/25 21:24 Labs: Laboratory Results - last 24 hr 03/25/25 03/26/25 21:24 00:14 MCV 87.6 MCH 31.6 MCHC 36.1 H RDW 13.1 Plt Count 101 L D MPV 8.8 L Immature Gran % (Auto) 0.4 Neut % (Auto) 61.5 Lymph % (Auto) 31.6 [place] % (Auto) 5.7 Eos % (Auto) 0.4 Baso % (Auto) 0.4 Lymph # (Auto) 1.5 [place] # (Auto) 0.3 Eos # (Auto) 0.0 Baso # (Auto) 0.0 Abs Immat Gran (auto) 0.02 Absolute Neuts (auto) 2.9 Absolute Nucleated RBC 0.000 Nucleated RBC % (auto) 0.0 Anion Gap 20 Estim Creat Clear Calc 167.3 Estimated GFR > 60 Random Glucose 91 Calcium 8.6 Total Bilirubin 1.7 H AST 220 H ALT 139 H Alkaline Phosphatase 95 Total Protein 8.0 Albumin 4.5 Lipase 91 H Urine Color Yellow Urine Appearance Clear Urine pH 5.5 Ur Specific [place] 1.020 Urine Protein 30 (1+) H Urine Glucose (UA) Negative Urine Ketones 80 Urine Blood Negative Urine Nitrite Negative Ur Leukocyte Esterase Negative Urine RBC 0-2 Urine WBC 0-5 Ur Squamous Epith Cells 0-2 Urine Bacteria None Seen Hyaline Casts 3-5 Urine Opiates Screen Not Detected Ur Buprenorphine Scrn Not Detected Ur Oxycodone Screen Not Detected Urine Methadone Screen Not Detected Urine Fentanyl Screen Not Detected Ur Barbiturates Screen Not Detected Ur Phencyclidine Scrn Not Detected Ur Amphetamines Screen Not Detected U Benzodiazepines Scrn Not Detected Urine Cocaine Screen Not Detected U Marijuana (THC) Screen Not Detected Ethyl Alcohol 411 H* ECG Attestation: I personally reviewed and interpreted this ECG as follows: (Sinus tachycardia QTC 438 no ischemic changes) Prior ECG tracings: available for review Assessment and Plan (1) Alcohol withdrawal: Qualifiers: Complication of substance-induced condition: with perceptual disturbance Qualified Code(s): F10.932 - Alcohol use, unspecified with withdrawal with perceptual disturbance Status: Acute Plan Patient is a 44-year-old male with past medical history substance use disorder in remission, alcohol use disorder stopped in 2020 with recurrence 1 month ago, cellulitis of face, vitamin-D deficiency was BIBA after a 2 week binge of alcohol using vodka, approximately 10 1.75 L bottles over this period of time due to stress at work and in life. Patient being admitted for alcohol withdrawal and intervention. Alcohol withdrawal secondary to binge drinking/ remote hx of substance use disorder (cocaine) Patient is started on phenobarbital protocol [facility] Addictions consulted Psychiatry consulted: Spouse is filing a section 35 later today. Concern that patient may have undiagnosed depression or other psychiatric concern. Thiamine and folic acid ordered Lipase 91, IV fluids running Patient has tolerated clears in the ED, will continue Lactic acid, magnesium pending. If lactic acid elevated consider ultrasound versus CT scan of the abdomen noting transaminitis, lipase Transaminitis Likely secondary to binge drinking Lactic acid pending As above consider diagnostic testing if indicated CMP in the a.m. Avoid hepatotoxic meds Thrombocytopenia Likely secondary to liver involvement from alcohol use Still above 100 K with no spontaneous bleeding Monitor CBC daily GERD/ hx of esophagitis releted to ETOH use Protonix Daily H.H stable Vitamin-D deficiency Continue vitamin-D supplementation once med rec is completed Vitamin-D levels WNL 01/2025 Bilateral calf pain Patient normally avid runner until 1 month prior when he started drinking Checking total CK level as patient has been extremely sedentary per spouse IV fluids are currently running Ibuprofen 400 x 1 DVT prophylaxis: Lovenox Med rec pending Full code status Patient requires at least 2 midnight stay for treatment for alcohol withdrawal potential, expert consultation with addictions and Psychiatry and supportive care in the inpatient setting. Quality Stroke Does the patient have a stroke diagnosis?: No Reason for No Anti-thrombotic by Day Two: N/A - Med Ordered VTE Prior VTE?: No VTE Risk Level:: Medical - moderate - high VTE Device Contraindication: N/A - Device Ordered VTE Drug Contraindication: N/A - Med Ordered
[2025-03-26] MEDS: PHENobarbitaL sodium 130 MG/ML IM ONCE 320 MG IM (01:51)
[2025-03-26] MEDS: diazePAM 10 MG/2 ML CARTRIDGE 5 MG IVPUSH (02:18)
[2025-03-26 02:38] LABS: Magnesium 1.8 mg/dL (1.6-2.6)
[2025-03-26] MEDS: PHENobarbitaL sodium 130 MG/ML VIAL IM Q3Hx2 240 MG IM ×2 (05:30→08:27)
[2025-03-26 05:35] LABS: MANUAL DIFF FLAG NO
[2025-03-26 05:37] LABS: Hematocrit 40.3 % (42.0-52.0); Hemoglobin 14.7 g/dl (14.0-18.0); Imm Gran Abs Auto 0.01 X10*3/uL (0.00-0.03); Imm Gran Pct Auto 0.2 % (0.0-0.4); Lymphocytes Absolute Auto 2.2 X10*3/uL (1.2-4.9); Mean Corpuscular HGB Conc 36.5 g/dl (31.0-36.0); Mean Corpuscular Hemoglobin 32.4 pg (27.0-33.0); Mean Corpuscular Volume 88.8 fL (80.0-98.0); NRBC Abs Auto 0.000 X10*3/uL (0.0-0.012); NRBC Pct Auto 0.0 /100WBC (0.0-0.2); Red Blood Count 4.54 X10*6/uL (4.60-5.80); White Blood Count 4.7 X10*3/uL (4.8-10.8)
[2025-03-26 05:38] LABS: Platelet Count 95 X10*3/uL (160-400)
[2025-03-26 05:51] LABS: Alanine Aminotransferase 117 U/L (0-40); Albumin Level 4.1 g/dL (3.5-5.0); Alkaline Phosphatase 78 U/L (39-117); Anion Gap 20 (12-20); Aspartate Amino Transferase 155 U/L (5-37); Blood Urea Nitrogen 14 mg/dL (9-16); Calcium 8.0 mg/dL (8.4-10.2); Carbon Dioxide 23 mmol/L (22-29); Chloride 99 mmol/L (96-108); Creatinine Clr Calc Pharmacy 159.9; Estimated Glomerular Filt Rate > 60; Lipase 96 U/L (8-78); Potassium 3.6 mmol/L (3.3-5.1); Sodium 138 mmol/L (135-145); Total Protein 7.0 g/dL (6.5-8.0)
[2025-03-26 06:15] LABS: Cancel Lactic Acid Canceled
--- NOTE | 2025-03-26 07:40 | HO.NURTONUR ---
Addendum entered by Alpa Rivera RN 03/26/25 15:28: Pt c/o new onset chest pain. A&Ox3, VSS Steady gait CIWA=8 Plan to medicate Pt with schedule Phenobarbital and PRN Zofran. Reported complaint to Attending Charley who reports he will see Pt in person re: complaint; no new orders received at this time. Addendum entered by Alpa Rivera RN 03/26/25 08:31: Pt rests quietly this AM. NAD noted at this time. reports she has a scheduled court appearance today for Section 35 for Pt. Original Note: 44 yr male admitted for ETOH withdrawal. Pt comes to ED with withdrawal sxs after a 2 week binge drinking several 1.75L vodka per day. Pt with Hx substance abuse followed by rehab and sobriety. Pt relapses d/t life stressors. ETOH level on arrival 411. No SI/HI Phenobarb protocol initiated. NS running @ 125ml/hr Recovery and Care Team consults orderd. at bedside and intends to proceed with Section 35.
--- NOTE | 2025-03-26 09:15 | MHC.CM.PN ---
Patient's has been staying with her Parents for the past 2 weeks during Patient's binge drinking; she is filing for a Section 35. CM has initiated and will follow for dc planning. PCP/GSE MECHANIC is Mayrbel Davidson.
--- NOTE | 2025-03-26 10:13 | PHA.MEDREC ---
Addendum entered by Ondina Blancas RPh 03/26/25 10:37: MED REC REVIEWED BY [facility] Original Note: Pharmacy Consult ? Medication Reconciliation Pharmacy has completed the medication reconciliation. Spoke with pt and pt at bedside and they confirmed pt is not taking any medications at this time.
--- NOTE | 2025-03-26 14:48 | MHC.CM.PN ---
CM met with Patient and his /Brit at bedside to offer assistance. Section 35 has been dismissed;Patient is agreeable to meet with a [facility] research editor. Per Brit, Patient will detox here and, then we will figure out the next steps. CM will continue to follow.
--- NOTE | 2025-03-26 15:56 | PM.PSYCN ---
History of Present Illness Date of Service: 03/26/2025 Chief Complaint: ETOH withdrawal Reason for Consult: ? depression Discussed with referring provider: Yes Sources of Information: patient interviewed, chart reviewed and crisis/core team assessment reviewed HPI Narrative: Mr. Mcgovern is a 44 year-old male with hx of alcohol use disorder who self presented to [facility] ED due to alcohol withdrawal symptoms. It appears he has been binge drinking for the past 2 weeks. BAL in the ED was 411. He was admitted to the medical floor for alcohol withdrawal with phenobarb protocol. Psychiatry was consulted for depression. Pt seen in the ED with his by his side. Pt reports he is aware psychiatry was going to be consulted. However, he reports he has multiple stressors. Per records, was considering separation or divorce. Pt denies SI/HI. He does report there are times when he is drinking that I don't care what happens to me but states he is trying to get better. No imminent safety concern to be addressed during this hospital stay. He will also meet with addiction medicine. No psychosis or delusions. Per records- may be considering sect 35. [facility] Medical History (Updated 03/26/25 @ 16:10 by Ariadne Bryant NP) Alcoholic gastritis Cocaine abuse in remission Family history of brain aneurysm Vitamin D deficiency Hard of hearing Drug addiction Alcoholism Surgical History No pertinent past surgical history Diagnostics Vital Signs (24Hr): Vital Signs - 24 hr 03/25/25 20:40 03/25/25 20:45 03/26/25 00:30 Temperature 98.2 F 98.2 F 98.1 F Pulse Rate 113 H 113 H 113 H Respiratory Rate 16 16 18 Blood Pressure 138/97 H 138/97 H 135/88 Pulse Oximetry 96 96 96 Oxygen Delivery Method Room Air Room Air Room Air 03/26/25 02:19 03/26/25 04:46 03/26/25 12:30 Temperature 97.9 F 98.4 F Pulse Rate 108 H 110 H 89 Respiratory Rate 17 16 13 Blood Pressure 120/84 106/68 130/74 Pulse Oximetry 99 96 97 Oxygen Delivery Method Room Air Room Air Room Air 03/26/25 15:09 Temperature Pulse Rate 85 Respiratory Rate 11 L Blood Pressure 117/80 Pulse Oximetry 96 Oxygen Delivery Method Room Air BMI result Body Mass Index 26.3 Labs 03/26/25 05:26 03/26/25 05:26 Labs: Laboratory Results - last 48 hr 03/25/25 03/26/25 03/26/25 21:24 00:14 05:26 WBC 4.7 L 4.7 L RBC 5.00 4.54 L Hgb 15.8 14.7 Hct 43.8 40.3 L MCV 87.6 88.8 MCH 31.6 32.4 MCHC 36.1 H 36.5 H RDW 13.1 13.0 Plt Count 101 L D 95 L MPV 8.8 L 9.1 L Immature Gran % (Auto) 0.4 0.2 Neut % (Auto) 61.5 45.7 Lymph % (Auto) 31.6 45.6 H [place] % (Auto) 5.7 7.9 Eos % (Auto) 0.4 0.2 Baso % (Auto) 0.4 0.4 Lymph # (Auto) 1.5 2.2 [place] # (Auto) 0.3 0.4 Eos # (Auto) 0.0 0.0 Baso # (Auto) 0.0 0.0 Abs Immat Gran (auto) 0.02 0.01 Absolute Neuts (auto) 2.9 2.2 Absolute Nucleated RBC 0.000 0.000 Nucleated RBC % (auto) 0.0 0.0 Sodium 141 138 Potassium 3.8 3.6 Chloride 102 99 Carbon Dioxide 23 23 Anion Gap 20 20 BUN 11 14 Creatinine 0.65 0.68 Estim Creat Clear Calc 167.3 159.9 Estimated GFR > 60 > 60 Random Glucose 91 76 Lactic Acid 3.3 H* Calcium 8.6 8.0 L D Magnesium 1.8 Total Bilirubin 1.7 H 1.9 H AST 220 H 155 H ALT 139 H 117 H Alkaline Phosphatase 95 78 Total Creatine Kinase 254 H Total Protein 8.0 7.0 Albumin 4.5 4.1 Lipase 91 H 96 H Urine Color Yellow Urine Appearance Clear Urine pH 5.5 Ur Specific [place] 1.020 Urine Protein 30 (1+) H Urine Glucose (UA) Negative Urine Ketones 80 Urine Blood Negative Urine Nitrite Negative Ur Leukocyte Esterase Negative Urine RBC 0-2 Urine WBC 0-5 Ur Squamous Epith Cells 0-2 Urine Bacteria None Seen Hyaline Casts 3-5 Urine Opiates Screen Not Detected Ur Buprenorphine Scrn Not Detected Ur Oxycodone Screen Not Detected Urine Methadone Screen Not Detected Urine Fentanyl Screen Not Detected Ur Barbiturates Screen Not Detected Ur Phencyclidine Scrn Not Detected Ur Amphetamines Screen Not Detected U Benzodiazepines Scrn Not Detected Urine Cocaine Screen Not Detected U Marijuana (THC) Screen Not Detected Ethyl Alcohol 411 H* Mental Status Exam Mental Status Exam Narrative: Appearance: wearing hospital gown, fair hygiene, in NAD behavior: calm, somewhat guarded Psychomotor: no agitation or retardation noted Speech: clear, normal rate/rhythm/volume, spontaneous TP: linear TC: no psychosis, nor delusional content. feeling physically unwell. Mood: tired Affect: congruent SI: denies HI: denies Insight/judgment: fair x 2. memory/cog: alert, oriented x 3. grossly intact to conversational testing. Medications Medications Current Medications Acetaminophen (Acetaminophen 325 Mg Tablet) 650 mg PO Q6H PRN PRN Reason: Pain, Mild 1-3,fever,headache Last Admin: 03/26/25 12:13 Dose: 650 mg Albuterol/Ipratropium (Albuterol/Iprat 2.5/0.5mg 3 Ml Ampul.Neb) 3 ml INHALE Q4H PRN PRN Reason: Shortness of Breath/Wheezing Calcium Carbonate (Calcium Carbonate 750 Mg Tab.Chew) 750 mg PO Q4H PRN PRN Reason: Heartburn Enoxaparin Sodium (Enoxaparin Sodium 40 Mg/0.4 Ml Syringe) 40 mg SUBCUT DAILY [facility] Last Admin: 03/26/25 01:43 Dose: 40 mg Sodium Chloride (Ns) 1,000 mls @ 125 mls/hr IVCONT .Q8H [facility] Last Admin: 03/26/25 10:36 Dose: 125 mls/hr Magnesium Hydroxide (Milk Of Magnesia 30 Ml Oral.Susp) 30 ml PO DAILY PRN PRN Reason: Constipation Melatonin (Melatonin 3 Mg Tablet) 6 mg PO BEDTIME PRN PRN Reason: Insomnia Ondansetron HCl (Ondansetron Hcl 4 Mg/2 Ml Vial) 4 mg IVPUSH Q8H PRN PRN Reason: Nausea and Vomiting Last Admin: 03/26/25 15:32 Dose: 4 mg Pantoprazole Sodium (Pantoprazole Sodium 40 Mg/10 Ml Vial) 40 mg IVPUSH DAILY@0630 [facility] Last Admin: 03/26/25 05:30 Dose: 40 mg Pharmacy Consult (Consult Rx Etoh Phenob Im/Po) 1 each MISCELLANE ONCE PRN; Protocol PRN Reason: Consult order Phenobarbital (Phenobarbital 30 Mg Tablet) 60 mg PO BID [facility]; Protocol Stop: 03/27/25 21:01 Last Admin: 03/26/25 15:32 Dose: 60 mg Phenobarbital (Phenobarbital 30 Mg Tablet) 30 mg PO BID [facility]; Protocol Stop: 03/29/25 21:01 Phenobarbital (Phenobarbital 30 Mg Tablet) 30 mg PO DAILY [facility]; Protocol Stop: 03/31/25 09:01 Polyethylene Glycol (Polyethylene Glycol 3350 17 Gm Powd.Pack) 17 gm PO DAILY PRN PRN Reason: Constipation Senna (Sennosides 8.6 Mg Tablet) 17.2 mg PO BEDTIME [facility] Sodium Chloride (0.9 % Sodium Chloride Flush 3 Ml Syringe) 3 ml IVFLUSH QSHIFT [facility] Last Admin: 03/26/25 07:08 Dose: Not Given Allergies Allergies Allergy/AdvReac Type Severity Reaction Status Date / Time No Known Allergies (No Known Allergy Verified 03/25/25 20:48 Allergies*) Assessment & Plan Assessment & Plan (1) MDD (major depressive disorder), recurrent episode, moderate: Status: Acute Code(s): F33.1 - Major depressive disorder, recurrent, moderate Plan Mr. Mcgovern is a 44 year-old male with hx of alcohol use disorder, depression. He is currently admitted for phenobar protocol for alcohol withdrawal. Psychiatry was consulted for question of depression. Clearly, pt going through several stressors. However, no acute or imminent safety concerns in terms of SI or HI. It is difficult at this time to engage in more in depth assessment as pt physically uncomfortable. Also, he needs to connect with OP treaters to assure continuity of care. We did discuss that he may benefit from OP psychotherapy/psychiatry. Case management may assist with this referral once medically cleared. No concern in terms of SI or HI. No need for inpt psych. Total time managing care of this patient today ____ minutes.
--- NOTE | 2025-03-26 17:37 | PM.EVENT ---
Event Note Date of Service: 03/26/25 Event Note: Patient evaluated today. Please refer to H and P for full description of admission events Patient endorses feeling overall better than he did prior to admission. Physical examination unremarkable, without overt signs of withdrawal. No visual or auditory hallucinations noted by patient. No overt tremulousness. Lab work unremarkable today. ASSESSMENT AND PLAN 44-year-old male with past medical history substance use disorder in remission, alcohol use disorder stopped in 2020 with recurrence 1 month ago, cellulitis of face, vitamin-D deficiency was BIBA after a 2 week binge of alcohol using vodka, being admitted for alcohol withdrawal and intervention. Alcohol withdrawal secondary to binge drinking Remote hx of substance use disorder (cocaine) Patient is started on phenobarbital protocol CIWA BAL on admission 400 Addictions consulted Psychiatry consulted: Spouse is filing a section 35 later today. Concern that patient may have undiagnosed depression or other psychiatric concern. Thiamine and folic acid ordered Lipase 91, IV fluids running Patient has tolerated clears in the ED, will continue Lactic acid, magnesium pending. Consider ultrasound versus CT scan of the abdomen noting transaminitis Check lipase closely Alcoholic Hepatitis Transaminitis Likely secondary to binge drinking Lactic acid pending Monitor CMP Avoid hepatotoxic meds Thrombocytopenia Likely secondary to liver involvement from alcohol use Still above 100 K with no spontaneous bleeding Monitor CBC daily GERD Hx of esophagitis Related to ETOH use Protonix Daily H.H stable Vitamin-D deficiency Continue vitamin-D supplementation once med rec is completed Vitamin-D levels WNL 01/2025 Bilateral calf pain Patient normally avid runner until 1 month prior when he started drinking Checking total CK level as patient has been extremely sedentary per spouse IV fluids are currently running Time Spent With Patient Time: Total time managing care of this patient today 35 minutes.
[2025-03-27 03:08] VITALS: BP 140/94; PULSE 77; RESP 16; TEMP 36.4; O2SAT 96
[2025-03-27 07:14] VITALS: BP 131/87; PULSE 70; RESP 16; TEMP 36; O2SAT 97
--- NOTE | 2025-03-27 10:04 | HO.ADDICTCON ---
History of Present Illness Date of Service: 03/27/2025 Chief Complaint: ETOH withdrawal Reason for Consult: AUD Sources of Information: patient interviewed and chart reviewed HPI Narrative: Patient is a 44 year old male with AUD, medically admitted with acute alcohol withdrawal. Started on phenobarbital in ED. EtOH level at admission 411. Admission note reviewed--pt reported drinking approx 1.75ml vodka QD for the last 2 weeks--recurrence of drinking started about a month ago after abstaining since 2020. Patient seen in room 454, present during interview. Patient awake, alert, pleasant and engaged in interview. He reports that over the past several months responsibilities have increased significantly at work and as a result he has slowly stopped self care activities, which had supported his recovery for the last 4 years. Withdrawal sx much improved--no tremor, anxiety improving, no n/v. reporting constipation He reports that his has secured a bed for him at a treatment facility in [place], and they can admit him on Tuesday, 03/29. He had been to this facility in the past, and found it very helpful with his recovery. He states that he was also attending meetings, spending time with family and friends, and running. Labs reviewed Medical Evaluation Reviewed: Yes Review of Systems Constitutional: Reports as per HPI Diagnostics Vital Signs (24Hr): Vital Signs - 24 hr 03/26/25 12:30 03/26/25 15:09 03/26/25 17:14 Temperature 98.4 F 97.5 F Pulse Rate 89 85 80 Respiratory Rate 13 11 L 16 Blood Pressure 130/74 117/80 134/86 Pulse Oximetry 97 96 96 Oxygen Delivery Method Room Air Room Air Room Air 03/26/25 17:31 03/26/25 19:55 03/26/25 23:33 Temperature 97.0 F 97.8 F 97.7 F Pulse Rate 76 100 77 Respiratory Rate 20 16 16 Blood Pressure 141/90 H 149/80 H 140/79 H Pulse Oximetry 96 98 98 Oxygen Delivery Method Room Air Room Air Room Air 03/27/25 03:08 03/27/25 07:14 Temperature 97.6 F 96.8 F Pulse Rate 77 70 Respiratory Rate 16 16 Blood Pressure 140/94 H 131/87 Pulse Oximetry 96 97 Oxygen Delivery Method Room Air Room Air BMI result Body Mass Index 27.1 Labs 03/26/25 05:26 03/26/25 05:26 Labs: Laboratory Results - last 48 hr 03/25/25 03/26/25 03/26/25 21:24 00:14 05:26 WBC 4.7 L 4.7 L RBC 5.00 4.54 L Hgb 15.8 14.7 Hct 43.8 40.3 L MCV 87.6 88.8 MCH 31.6 32.4 MCHC 36.1 H 36.5 H RDW 13.1 13.0 Plt Count 101 L D 95 L MPV 8.8 L 9.1 L Immature Gran % (Auto) 0.4 0.2 Neut % (Auto) 61.5 45.7 Lymph % (Auto) 31.6 45.6 H [place] % (Auto) 5.7 7.9 Eos % (Auto) 0.4 0.2 Baso % (Auto) 0.4 0.4 Lymph # (Auto) 1.5 2.2 [place] # (Auto) 0.3 0.4 Eos # (Auto) 0.0 0.0 Baso # (Auto) 0.0 0.0 Abs Immat Gran (auto) 0.02 0.01 Absolute Neuts (auto) 2.9 2.2 Absolute Nucleated RBC 0.000 0.000 Nucleated RBC % (auto) 0.0 0.0 Sodium 141 138 Potassium 3.8 3.6 Chloride 102 99 Carbon Dioxide 23 23 Anion Gap 20 20 BUN 11 14 Creatinine 0.65 0.68 Estim Creat Clear Calc 167.3 159.9 Estimated GFR > 60 > 60 Random Glucose 91 76 Lactic Acid 3.3 H* Calcium 8.6 8.0 L D Magnesium 1.8 Total Bilirubin 1.7 H 1.9 H AST 220 H 155 H ALT 139 H 117 H Alkaline Phosphatase 95 78 Total Creatine Kinase 254 H Total Protein 8.0 7.0 Albumin 4.5 4.1 Lipase 91 H 96 H Urine Color Yellow Urine Appearance Clear Urine pH 5.5 Ur Specific [place] 1.020 Urine Protein 30 (1+) H Urine Glucose (UA) Negative Urine Ketones 80 Urine Blood Negative Urine Nitrite Negative Ur Leukocyte Esterase Negative Urine RBC 0-2 Urine WBC 0-5 Ur Squamous Epith Cells 0-2 Urine Bacteria None Seen Hyaline Casts 3-5 Urine Opiates Screen Not Detected Ur Buprenorphine Scrn Not Detected Ur Oxycodone Screen Not Detected Urine Methadone Screen Not Detected Urine Fentanyl Screen Not Detected Ur Barbiturates Screen Not Detected Ur Phencyclidine Scrn Not Detected Ur Amphetamines Screen Not Detected U Benzodiazepines Scrn Not Detected Urine Cocaine Screen Not Detected U Marijuana (THC) Screen Not Detected Ethyl Alcohol 411 H* Mental Status Exam Mental Status Exam Patient Appearance: Appropriate Level of Consciousness: Awake, Appropriate and Alert Patient Behavior: Appropriate and Cooperative Affect Description: Calm Speech Pattern: Clear Thought Process: Intact Thought Content: positive for Intact Judgement: Good Medications Medications Current Medications Acetaminophen (Acetaminophen 325 Mg Tablet) 650 mg PO Q6H PRN PRN Reason: Pain, Mild 1-3,fever,headache Last Admin: 03/27/25 08:41 Dose: 650 mg Albuterol/Ipratropium (Albuterol/Iprat 2.5/0.5mg 3 Ml Ampul.Neb) 3 ml INHALE Q4H PRN PRN Reason: Shortness of Breath/Wheezing Calcium Carbonate (Calcium Carbonate 750 Mg Tab.Chew) 750 mg PO Q4H PRN PRN Reason: Heartburn Enoxaparin Sodium (Enoxaparin Sodium 40 Mg/0.4 Ml Syringe) 40 mg SUBCUT DAILY [facility] Last Admin: 03/27/25 08:39 Dose: 40 mg Sodium Chloride (Ns) 1,000 mls @ 125 mls/hr IVCONT .Q8H [facility] Last Admin: 03/27/25 08:48 Dose: 125 mls/hr Magnesium Hydroxide (Milk Of Magnesia 30 Ml Oral.Susp) 30 ml PO DAILY PRN PRN Reason: Constipation Melatonin (Melatonin 3 Mg Tablet) 6 mg PO BEDTIME PRN PRN Reason: Insomnia Ondansetron HCl (Ondansetron Hcl 4 Mg/2 Ml Vial) 4 mg IVPUSH Q8H PRN PRN Reason: Nausea and Vomiting Last Admin: 03/26/25 15:32 Dose: 4 mg Pantoprazole Sodium (Pantoprazole Sodium 40 Mg/10 Ml Vial) 40 mg IVPUSH DAILY@0630 [facility] Last Admin: 03/27/25 04:54 Dose: 40 mg Pharmacy Consult (Consult Rx Etoh Phenob Im/Po) 1 each MISCELLANE ONCE PRN; Protocol PRN Reason: Consult order Phenobarbital (Phenobarbital 30 Mg Tablet) 60 mg PO BID [facility]; Protocol Stop: 03/27/25 21:01 Last Admin: 03/27/25 08:39 Dose: 60 mg Phenobarbital (Phenobarbital 30 Mg Tablet) 30 mg PO BID [facility]; Protocol Stop: 03/29/25 21:01 Phenobarbital (Phenobarbital 30 Mg Tablet) 30 mg PO DAILY [facility]; Protocol Stop: 03/31/25 09:01 Polyethylene Glycol (Polyethylene Glycol 3350 17 Gm Powd.Pack) 17 gm PO DAILY PRN PRN Reason: Constipation Last Admin: 03/27/25 08:44 Dose: 17 gm Senna (Sennosides 8.6 Mg Tablet) 17.2 mg PO BEDTIME [facility] Last Admin: 03/26/25 20:27 Dose: 17.2 mg Sodium Chloride (0.9 % Sodium Chloride Flush 3 Ml Syringe) 3 ml IVFLUSH QSHIFT [facility] Last Admin: 03/27/25 09:53 Dose: Not Given Allergies Allergies Allergy/AdvReac Type Severity Reaction Status Date / Time No Known Allergies (No Known Allergy Verified 03/25/25 20:48 Allergies*) Assessment & Plan Assessment & Plan (1) Alcohol use disorder, severe, dependence: Status: Acute Code(s): F10.20 - Alcohol dependence, uncomplicated Assessment and Plan: withdrawal improving -phenobarbital taper in place continue thiamine and folic acid at discharge for a month or two plans to go to program in [place], admission coordinated by his --bed available on Tuesday, 03/29 drill doctor to follow up with resources as requested by patient and Total time managing care of this patient today ___45_ minutes. [facility] Past Medical History Medical History (Updated 03/27/25 @ 11:39 by Krista Felton CNP) Alcoholic gastritis Cocaine abuse in remission Family history of brain aneurysm Vitamin D deficiency Hard of hearing Drug addiction Alcoholism Family History Family History (Updated 03/26/25 @ 02:14 by ASHU Hernandez-OMEGA) Mother Hypertension High cholesterol Brain aneurysm Father Cancer Alcoholism Substance abuse Surgical History Surgical History No pertinent past surgical history Social History Social History Household Members: Spouse Housing: Apartment Do you presently have visiting nurse or other home services: No 75 years or older and lives alone: No Alcohol intake: current Alcohol intake frequency: 3 or more drinks per day Patient Tobacco Use Status: Former Tobacco user e-Cigarette/Vaping Use: Never Used Second Hand Smoke Exposure: No service: No Current occupational status: employed 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
[2025-03-27 11:17] VITALS: BP 130/87; PULSE 89; RESP 16; TEMP 36.1; O2SAT 97
[2025-03-27] MEDS: Milk of Magnesia 30 ML ORAL.SUSP PO (12:03)
--- NOTE | 2025-03-27 12:47 | MHC.RECOVRN ---
Consult received by Addiction Medicine for pt with AUD.? Recovery/BH assessment complete. Please see for additional details Provided pt with written resources including information on PHP/IOP, JOSEPHINE, harm reduction, recovery coaching, and pathways to recovery as requested by patient. Spouse was provided information on [facility] [place] and other family supports.? Pt reports he is attending ?[facility]? in [place] on Tuesday and declined JOSEPHINE, ?because they don?t allow it?. Pt declined referral for out patient appt for treatment related to AUD at this time and was provided TW contact information for further support or resources if needed.
--- NOTE | 2025-03-27 13:44 | P.PNIM_ITS ---
Subjective Subjective Date of Service: 03/27/25 Interval History: No new issues or complaints today. Feels better overall Review of Systems Review of Systems: Yes all other systems are reviewed and are negative Physical Exam 2 Exam: Exam: General: A&O x3, oriented to time place person and situation, comfortable, no pain Cardiac: S1, S2 auscultated with no S3/4, no MRG. Well perfused. Respiratory: Normal breath sounds auscultated throughout all lung zones, without wheezing, rales. Normal rate. GI/ : No abdominal pain on palpation, no masses or distentions. MSK: Normal ambulation without pain at bony prominences or musculature Neurological: Normal neurological examination on overview, without obvious CN II-XII abnormalities. Vital Signs: Vital Signs: Last Vital Signs Temp 97.0 F 03/27/25 11:17 Pulse 89 03/27/25 11:17 Resp 16 03/27/25 11:17 BP 130/87 03/27/25 11:17 Pulse Ox 97 03/27/25 11:17 O2 Del Method Room Air 03/27/25 11:17 BMI result Body Mass Index 27.1 Objective Data Active Medications Acetaminophen (Acetaminophen 325 Mg Tablet) 650 mg PO Q6H PRN PRN Reason: Pain, Mild 1-3,fever,headache Last Admin: 03/27/25 08:41 Dose: 650 mg Documented By: BERNY Albuterol/Ipratropium (Albuterol/Iprat 2.5/0.5mg 3 Ml Ampul.Neb) 3 ml INHALE Q4H PRN PRN Reason: Shortness of Breath/Wheezing Calcium Carbonate (Calcium Carbonate 750 Mg Tab.Chew) 750 mg PO Q4H PRN PRN Reason: Heartburn Enoxaparin Sodium (Enoxaparin Sodium 40 Mg/0.4 Ml Syringe) 40 mg SUBCUT DAILY [facility] Last Admin: 03/27/25 08:39 Dose: 40 mg Documented By: BERNY Sodium Chloride (Ns) 1,000 mls @ 125 mls/hr IVCONT .Q8H [facility] Last Admin: 03/27/25 08:48 Dose: 125 mls/hr Documented By: BERNY Magnesium Hydroxide (Milk Of Magnesia 30 Ml Oral.Susp) 30 ml PO DAILY PRN PRN Reason: Constipation Last Admin: 03/27/25 12:03 Dose: 30 ml Documented By: BERNY Melatonin (Melatonin 3 Mg Tablet) 6 mg PO BEDTIME PRN PRN Reason: Insomnia Ondansetron HCl (Ondansetron Hcl 4 Mg/2 Ml Vial) 4 mg IVPUSH Q8H PRN PRN Reason: Nausea and Vomiting Last Admin: 03/26/25 15:32 Dose: 4 mg Documented By: HORTENSIA Pantoprazole Sodium (Pantoprazole Sodium 40 Mg/10 Ml Vial) 40 mg IVPUSH DAILY@0630 [facility] Last Admin: 03/27/25 04:54 Dose: 40 mg Documented By: JD Pharmacy Consult (Consult Rx Etoh Phenob Im/Po) 1 each MISCELLANE ONCE PRN; Protocol PRN Reason: Consult order Phenobarbital (Phenobarbital 30 Mg Tablet) 60 mg PO BID [facility]; Protocol Stop: 03/27/25 21:01 Last Admin: 03/27/25 08:39 Dose: 60 mg Documented By: BERNY Phenobarbital (Phenobarbital 30 Mg Tablet) 30 mg PO BID [facility]; Protocol Stop: 03/29/25 21:01 Phenobarbital (Phenobarbital 30 Mg Tablet) 30 mg PO DAILY [facility]; Protocol Stop: 03/31/25 09:01 Polyethylene Glycol (Polyethylene Glycol 3350 17 Gm Powd.Pack) 17 gm PO DAILY PRN PRN Reason: Constipation Last Admin: 03/27/25 08:44 Dose: 17 gm Documented By: BERNY Senna (Sennosides 8.6 Mg Tablet) 17.2 mg PO BEDTIME [facility] Last Admin: 03/26/25 20:27 Dose: 17.2 mg Documented By: JD Sodium Chloride (0.9 % Sodium Chloride Flush 3 Ml Syringe) 3 ml IVFLUSH [facility] Last Admin: 03/27/25 09:53 Dose: Not Given Documented By: BERNY Non-Admin Reason: IV Running Labs 03/26/25 05:26 03/26/25 05:26 Assessment and Plan (1) MDD (major depressive disorder), recurrent episode, moderate: Status: Acute (2) Alcohol dependence: Status: Acute (3) Cocaine abuse in remission: Status: Acute (4) Alcohol abuse: Status: Acute (5) Alcohol withdrawal: Status: Acute (6) Alcohol use disorder, severe, dependence: Status: Acute (7) Alcoholic gastritis: Status: Acute Plan 44-year-old male with past medical history substance use disorder in remission, alcohol use disorder stopped in 2020 with recurrence 1 month ago, cellulitis of face, vitamin-D deficiency was BIBA after a 2 week binge of alcohol using vodka, being admitted for alcohol withdrawal and intervention. Alcohol withdrawal secondary to binge drinking Remote hx of substance use disorder (cocaine) Patient is started on phenobarbital protocol CIWA BAL on admission 400 Addictions consulted Psychiatry consulted: Spouse is filing a section 35 later today. Concern that patient may have undiagnosed depression or other psychiatric concern. Thiamine and folic acid ordered Lipase 91, IV fluids running Patient has tolerated clears in the ED, will continue Lactic acid, magnesium pending. Consider ultrasound versus CT scan of the abdomen noting transaminitis Check lipase closely Alcoholic Hepatitis Transaminitis Likely secondary to binge drinking Lactic acid pending Monitor CMP Avoid hepatotoxic meds Thrombocytopenia Likely secondary to liver involvement from alcohol use Still above 100 K with no spontaneous bleeding Monitor CBC daily GERD Hx of esophagitis Related to ETOH use Protonix Daily H.H stable Vitamin-D deficiency Continue vitamin-D supplementation once med rec is completed Vitamin-D levels WNL 01/2025 Bilateral calf pain Patient normally avid runner until 1 month prior when he started drinking Checking total CK level as patient has been extremely sedentary per spouse IV fluids are currently running [employer] - VTE: Enoxaparin 40 mg - CODE STATUS: Full code - DIET: Regular Total time managing care of this patient today: 35 minutes. Quality Stroke Does the patient have a stroke diagnosis?: No Reason for No Anti-thrombotic by Day Two: N/A - Med Ordered VTE Prior VTE?: No VTE Risk Level:: Medical - moderate - high VTE Device Contraindication: N/A - Device Ordered VTE Drug Contraindication: N/A - Med Ordered
[2025-03-27 15:41] VITALS: BP 151/87; PULSE 98; RESP 18; TEMP 36.3; O2SAT 96
[2025-03-27] MEDS: 0.9 % Sodium Chloride Flush 3 ML SYRINGE IVFLUSH (17:11)
[2025-03-27 19:26] VITALS: BP 134/83; PULSE 91; RESP 18; TEMP 36.6; O2SAT 98
[2025-03-27 23:28] VITALS: BP 128/76; PULSE 84; RESP 18; TEMP 36.4; O2SAT 97
[2025-03-28 03:01] VITALS: BP 122/74; PULSE 74; RESP 18; TEMP 36.4; O2SAT 97
--- NOTE | 2025-03-28 03:16 | PM.EVENT ---
Event Note Date of Service: 03/28/25 Event Note: IVFs renewed: D5/NS. Thiamine, folic acid and multivitamin added. Will recheck labs in am. Time Spent With Patient Time: Total time managing care of this patient today ____ minutes.
[2025-03-28] MEDS: Thiamine HCL 100 MG in 0.9 % Sodium Chloride 100 ML 202 MG IV (03:26)
[2025-03-28 08:00] VITALS: BP 145/88; PULSE 81; RESP 16; TEMP 36.5; O2SAT 98
[2025-03-28 08:40] LABS: MANUAL DIFF FLAG NO
[2025-03-28 08:49] LABS: Hematocrit 37.1 % (42.0-52.0); Hemoglobin 13.5 g/dl (14.0-18.0); Imm Gran Abs Auto 0.01 X10*3/uL (0.00-0.03); Imm Gran Pct Auto 0.2 % (0.0-0.4); Lymphocytes Absolute Auto 1.6 X10*3/uL (1.2-4.9); Mean Corpuscular HGB Conc 36.4 g/dl (31.0-36.0); Mean Corpuscular Hemoglobin 32.4 pg (27.0-33.0); Mean Corpuscular Volume 89.0 fL (80.0-98.0); NRBC Abs Auto 0.000 X10*3/uL (0.0-0.012); NRBC Pct Auto 0.0 /100WBC (0.0-0.2); Platelet Count 86 X10*3/uL (160-400); Red Blood Count 4.17 X10*6/uL (4.60-5.80); White Blood Count 4.4 X10*3/uL (4.8-10.8)
[2025-03-28 09:01] LABS: Alanine Aminotransferase 70 U/L (0-40); Albumin Level 3.7 g/dL (3.5-5.0); Alkaline Phosphatase 50 U/L (39-117); Anion Gap 11 (12-20); Aspartate Amino Transferase 83 U/L (5-37); Blood Urea Nitrogen 5 mg/dL (9-16); Calcium 8.2 mg/dL (8.4-10.2); Carbon Dioxide 27 mmol/L (22-29); Chloride 104 mmol/L (96-108); Creatinine Clr Calc Pharmacy 175.4; Estimated Glomerular Filt Rate > 60; Lipase 104 U/L (8-78); Magnesium 1.8 mg/dL (1.6-2.6); Potassium 3.5 mmol/L (3.3-5.1); Sodium 138 mmol/L (135-145); Total Protein 6.3 g/dL (6.5-8.0)
[2025-03-28 11:08] VITALS: BMI 26.9
[2025-03-28 11:24] VITALS: BP 135/90; PULSE 77; RESP 16; TEMP 36; O2SAT 100
--- NOTE | 2025-03-28 11:45 | P.PNIM_ITS ---
Subjective Subjective Date of Service: 03/28/25 Interval History: No new issues today. Patient feels well overall. Completed breakfast without complaint. Reports still feeling mildly tremulous and a bit mentally foggy Review of Systems Review of Systems: Yes all other systems are reviewed and are negative Physical Exam 2 Exam: Exam: General: A&O x3, oriented to time place person and situation, comfortable, no pain Cardiac: S1, S2 auscultated with no S3/4, no MRG. Well perfused. Respiratory: Normal breath sounds auscultated throughout all lung zones, without wheezing, rales. Normal rate. GI/ : No abdominal pain on palpation, no masses or distentions. MSK: Normal ambulation without pain at bony prominences or musculature Neurological: Normal neurological examination on overview, without obvious CN II-XII abnormalities. Vital Signs: Vital Signs: Last Vital Signs Temp 96.8 F 03/28/25 11:24 Pulse 77 03/28/25 11:24 Resp 16 03/28/25 11:24 BP 135/90 H 03/28/25 11:24 Pulse Ox 100 03/28/25 11:24 O2 Del Method Room Air 03/28/25 11:24 BMI result Body Mass Index 26.9 Objective Data Active Medications Acetaminophen (Acetaminophen 325 Mg Tablet) 650 mg PO Q6H PRN PRN Reason: Pain, Mild 1-3,fever,headache Last Admin: 03/27/25 08:41 Dose: 650 mg Documented By: BERNY Albuterol/Ipratropium (Albuterol/Iprat 2.5/0.5mg 3 Ml Ampul.Neb) 3 ml INHALE Q4H PRN PRN Reason: Shortness of Breath/Wheezing Calcium Carbonate (Calcium Carbonate 750 Mg Tab.Chew) 750 mg PO Q4H PRN PRN Reason: Heartburn Last Admin: 03/28/25 03:01 Dose: 750 mg Documented By: JD Enoxaparin Sodium (Enoxaparin Sodium 40 Mg/0.4 Ml Syringe) 40 mg SUBCUT DAILY [facility] Last Admin: 03/28/25 08:58 Dose: 40 mg Documented By: RIGO Folic Acid (Folic Acid 1 Mg Tablet) 1 mg PO DAILY [facility] Last Admin: 03/28/25 08:59 Dose: 1 mg Documented By: RIGO Thiamine HCl 100 mg/ Sodium (Chloride) 101 mls @ 202 mls/hr IV DAILY [facility] Last Infusion: 03/28/25 04:18 Dose: Infused Documented By: JD Dextrose/Sodium Chloride (D5ns) 1,000 mls @ 125 mls/hr IVCONT .Q8H [facility] Last Admin: 03/28/25 10:14 Dose: Not Given Documented By: RIGO Non-Admin Reason: Physician Held Med Magnesium Hydroxide (Milk Of Magnesia 30 Ml Oral.Susp) 30 ml PO DAILY PRN PRN Reason: Constipation Last Admin: 03/27/25 12:03 Dose: 30 ml Documented By: BERNY Melatonin (Melatonin 3 Mg Tablet) 6 mg PO BEDTIME PRN PRN Reason: Insomnia Multivitamins/Vitamin C (Multivitamin Tablet) 1 tab PO BEDTIME [facility]ON[facility]AN Ondansetron HCl (Ondansetron Hcl 4 Mg/2 Ml Vial) 4 mg IVPUSH Q8H PRN PRN Reason: Nausea and Vomiting Last Admin: 03/26/25 15:32 Dose: 4 mg Documented By: HORTENSIA Pantoprazole Sodium (Pantoprazole Sodium 40 Mg/10 Ml Vial) 40 mg IVPUSH DAILY@0630 [facility] Last Admin: 03/28/25 05:43 Dose: 40 mg Documented By: JD Pharmacy Consult (Consult Rx Etoh Phenob Im/Po) 1 each MISCELLANE ONCE PRN; Protocol PRN Reason: Consult order Phenobarbital (Phenobarbital 30 Mg Tablet) 30 mg PO BID [facility]; Protocol Stop: 03/29/25 21:01 Last Admin: 03/28/25 08:59 Dose: 30 mg Documented By: RIGO Phenobarbital (Phenobarbital 30 Mg Tablet) 30 mg PO DAILY [facility]; Protocol Stop: 03/31/25 09:01 Polyethylene Glycol (Polyethylene Glycol 3350 17 Gm Powd.Pack) 17 gm PO DAILY PRN PRN Reason: Constipation Last Admin: 03/27/25 08:44 Dose: 17 gm Documented By: BERNY Senna (Sennosides 8.6 Mg Tablet) 17.2 mg PO BEDTIME [facility] Last Admin: 03/27/25 20:05 Dose: 17.2 mg Documented By: JD Sodium Chloride (0.9 % Sodium Chloride Flush 3 Ml Syringe) 3 ml IVFLUSH QSHIFT [facility] Last Admin: 03/28/25 08:59 Dose: Not Given Documented By: RIGO Non-Admin Reason: IV Running Labs 03/28/25 08:09 03/28/25 08:09 Labs: Laboratory Results - last 24 hr 03/28/25 08:09 MCV 89.0 MCH 32.4 MCHC 36.4 H RDW 13.2 Plt Count 86 L MPV 10.0 Immature Gran % (Auto) 0.2 Neut % (Auto) 52.3 Lymph % (Auto) 35.8 Keith % (Auto) 8.3 Eos % (Auto) 3.2 Baso % (Auto) 0.2 Lymph # (Auto) 1.6 Keith # (Auto) 0.4 Eos # (Auto) 0.1 Baso # (Auto) 0.0 Abs Immat Gran (auto) 0.01 Absolute Neuts (auto) 2.3 Absolute Nucleated RBC 0.000 Nucleated RBC % (auto) 0.0 Anion Gap 11 L Estim Creat Clear Calc 175.4 Estimated GFR > 60 Random Glucose 109 Calcium 8.2 L Magnesium 1.8 Total Bilirubin 0.8 AST 83 H ALT 70 H Alkaline Phosphatase 50 Total Protein 6.3 L Albumin 3.7 Lipase 104 H Assessment and Plan (1) MDD (major depressive disorder), recurrent episode, moderate: Status: Acute (2) Alcohol dependence: Status: Acute (3) Cocaine abuse in remission: Status: Acute (4) Alcohol abuse: Status: Acute (5) Alcohol use disorder, severe, dependence: Status: Acute (6) Family history of brain aneurysm: Status: Acute (7) Vitamin D deficiency: Status: Acute (8) Alcoholic gastritis: Status: Acute (9) Influenza vaccination declined: Status: Acute Plan 44-year-old male with past medical history substance use disorder in remission, alcohol use disorder stopped in 2020 with recurrence 1 month ago, cellulitis of face, vitamin-D deficiency was BIBA after a 2 week binge of alcohol using vodka, being admitted for alcohol withdrawal and intervention. Alcohol withdrawal secondary to binge drinking Remote hx of substance use disorder (cocaine) Patient is started on phenobarbital protocol CIWA BAL on admission 400 Addictions consulted Psychiatry consulted: Spouse is filing a section 35 later today. Concern that patient may have undiagnosed depression or other psychiatric concern. Thiamine and folic acid ordered Lipase 91, IV fluids running Patient has tolerated clears in the ED, will continue Lactic acid, magnesium pending. Consider ultrasound versus CT scan of the abdomen noting transaminitis Check lipase closely Alcoholic Hepatitis Transaminitis Likely secondary to binge drinking Lactic acid pending Monitor CMP Avoid hepatotoxic meds Thrombocytopenia Likely secondary to liver involvement from alcohol use Still above 100 K with no spontaneous bleeding Monitor CBC daily GERD Hx of esophagitis Related to ETOH use Protonix Daily H.H stable Vitamin-D deficiency Continue vitamin-D supplementation once med rec is completed Vitamin-D levels WNL 01/2025 Bilateral calf pain Patient normally avid runner until 1 month prior when he started drinking Checking total CK level as patient has been extremely sedentary per spouse IV fluids are currently running [employer] - VTE: Enoxaparin 40 mg - CODE STATUS: Full code - DIET: Regular Total time managing care of this patient today: 35 minutes. Quality Stroke Does the patient have a stroke diagnosis?: No Reason for No Anti-thrombotic by Day Two: N/A - Med Ordered VTE Prior VTE?: No VTE Risk Level:: Medical - moderate - high VTE Device Contraindication: N/A - Device Ordered VTE Drug Contraindication: N/A - Med Ordered
[2025-03-28 16:00] VITALS: BP 144/84; PULSE 84; RESP 18; TEMP 36.4; O2SAT 99
[2025-03-28] MEDS: 0.9 % Sodium Chloride Flush 3 ML SYRINGE IVFLUSH ×2 (16:28→20:27)
[2025-03-28] MEDS: Milk of Magnesia 30 ML ORAL.SUSP PO (16:28)
[2025-03-28 19:09] VITALS: BP 140/85; PULSE 81; RESP 18; TEMP 36.4; O2SAT 99
[2025-03-29 03:21] VITALS: BP 117/79; PULSE 75; RESP 18; TEMP 36.4; O2SAT 98
[2025-03-29 07:20] VITALS: BP 123/84; PULSE 72; RESP 18; TEMP 36; O2SAT 97
[2025-03-29] MEDS: Thiamine HCL 100 MG in 0.9 % Sodium Chloride 100 ML 202 MG IV (08:36)
--- NOTE | 2025-03-29 11:55 | P.PNIM_ITS ---
Subjective Subjective Date of Service: 03/29/25 Interval History: improved significantly overall Patient has no new complaints today. Pending transfer to rehabilitation tomorrow. Review of Systems Review of Systems: Yes all other systems are reviewed and are negative Physical Exam 2 Exam: Exam: General: A&O x3, oriented to time place person and situation, comfortable, no pain Cardiac: S1, S2 auscultated with no S3/4, no MRG. Well perfused. Respiratory: Normal breath sounds auscultated throughout all lung zones, without wheezing, rales. Normal rate. GI/ : No abdominal pain on palpation, no masses or distentions. MSK: Normal ambulation without pain at bony prominences or musculature Neurological: Normal neurological examination on overview, without obvious CN II-XII abnormalities. Vital Signs: Vital Signs: Last Vital Signs Temp 96.8 F 03/29/25 07:20 Pulse 72 03/29/25 07:20 Resp 18 03/29/25 07:20 BP 123/84 03/29/25 07:20 Pulse Ox 97 03/29/25 07:20 O2 Del Method Room Air 03/29/25 07:20 BMI result Body Mass Index 26.9 Objective Data Active Medications Acetaminophen (Acetaminophen 325 Mg Tablet) 650 mg PO Q6H PRN PRN Reason: Pain, Mild 1-3,fever,headache Last Admin: 03/29/25 05:41 Dose: 650 mg Documented By: KAILYN Albuterol/Ipratropium (Albuterol/Iprat 2.5/0.5mg 3 Ml Ampul.Neb) 3 ml INHALE Q4H PRN PRN Reason: Shortness of Breath/Wheezing Calcium Carbonate (Calcium Carbonate 750 Mg Tab.Chew) 750 mg PO Q4H PRN PRN Reason: Heartburn Last Admin: 03/28/25 16:28 Dose: 750 mg Documented By: DWAINE Enoxaparin Sodium (Enoxaparin Sodium 40 Mg/0.4 Ml Syringe) 40 mg SUBCUT DAILY [facility] Last Admin: 03/29/25 08:37 Dose: 40 mg Documented By: KERLINE Folic Acid (Folic Acid 1 Mg Tablet) 1 mg PO DAILY [facility] Last Admin: 03/29/25 08:36 Dose: 1 mg Documented By: KERLINE Thiamine HCl 100 mg/ Sodium (Chloride) 101 mls @ 202 mls/hr IV DAILY [facility] Last Infusion: 03/29/25 09:43 Dose: Infused Documented By: KERLINE Magnesium Hydroxide (Milk Of Magnesia 30 Ml Oral.Susp) 30 ml PO DAILY PRN PRN Reason: Constipation Last Admin: 03/28/25 16:28 Dose: 30 ml Documented By: DWAINE Melatonin (Melatonin 3 Mg Tablet) 6 mg PO BEDTIME PRN PRN Reason: Insomnia Last Admin: 03/28/25 20:26 Dose: 6 mg Documented By: KAILYN Multivitamins/Vitamin C (Multivitamin Tablet) 1 tab PO BEDTIME [facility] Last Admin: 03/28/25 20:27 Dose: 1 tab Documented By: KAILYN Ondansetron HCl (Ondansetron Hcl 4 Mg/2 Ml Vial) 4 mg IVPUSH Q8H PRN PRN Reason: Nausea and Vomiting Last Admin: 03/26/25 15:32 Dose: 4 mg Documented By: HORTENSIA Pharmacy Consult (Consult Rx Etoh Phenob Im/Po) 1 each MISCELLANE ONCE PRN; Protocol PRN Reason: Consult order Phenobarbital (Phenobarbital 30 Mg Tablet) 30 mg PO BID [facility]; Protocol Stop: 03/29/25 21:01 Last Admin: 03/29/25 08:36 Dose: 30 mg Documented By: KERLINE Phenobarbital (Phenobarbital 30 Mg Tablet) 30 mg PO DAILY [facility]; Protocol Stop: 03/31/25 09:01 Polyethylene Glycol (Polyethylene Glycol 3350 17 Gm Powd.Pack) 17 gm PO DAILY PRN PRN Reason: Constipation Last Admin: 03/27/25 08:44 Dose: 17 gm Documented By: BERNY Senna (Sennosides 8.6 Mg Tablet) 17.2 mg PO BEDTIME [facility] Last Admin: 03/28/25 20:26 Dose: 17.2 mg Documented By: KAILYN Sodium Chloride (0.9 % Sodium Chloride Flush 3 Ml Syringe) 3 ml IVFLUSH QSHIFT [facility] Last Admin: 03/29/25 08:45 Dose: Not Given Documented By: KERLINE Non-Admin Reason: Previously Administered Labs 03/28/25 08:09 03/28/25 08:09 Assessment and Plan (1) MDD (major depressive disorder), recurrent episode, moderate: Status: Acute (2) Alcohol dependence: Status: Acute (3) Cocaine abuse in remission: Status: Acute (4) Alcohol abuse: Status: Acute (5) Alcohol withdrawal: Status: Acute (6) Alcohol use disorder, severe, dependence: Status: Acute (7) Family history of brain aneurysm: Status: Acute (8) Alcoholic gastritis: Status: Acute (9) Abdominal pain: Status: Acute (10) Influenza vaccination declined: Status: Acute (11) Cervical pain (neck): Status: Acute Plan 44-year-old male with past medical history substance use disorder in remission, alcohol use disorder stopped in 2020 with recurrence 1 month ago, cellulitis of face, vitamin-D deficiency was BIBA after a 2 week binge of alcohol using vodka, being admitted for alcohol withdrawal and intervention. Alcohol withdrawal secondary to binge drinking Remote hx of substance use disorder (cocaine) Patient is started on phenobarbital protocol CIWA BAL on admission 400 Addictions consulted Thiamine and folic acid ordered Lipase 91, IV fluids administered Lactic acid, magnesium normal. Consider ultrasound versus CT scan of the abdomen noting transaminitis Plan for discharge to [facility] rehab outpatient - after completing phenobarb protocol (last dose tomorrow morning) Alcoholic Hepatitis Transaminitis Likely secondary to binge drinking Lactic acid pending Monitor CMP Avoid hepatotoxic meds Thrombocytopenia Likely secondary to liver involvement from alcohol use Still above 100 K with no spontaneous bleeding Monitor CBC daily GERD Hx of esophagitis Related to ETOH use Protonix Daily H.H stable Vitamin-D deficiency Continue vitamin-D supplementation once med rec is completed Vitamin-D levels WNL 01/2025 Bilateral calf pain Patient normally avid runner until 1 month prior when he started drinking Checking total CK level as patient has been extremely sedentary per spouse IV fluids are currently running [employer] - VTE: Enoxaparin 40 mg - CODE STATUS: Full code - DIET: Regular - DISPOSITION: discharge to rehab tomorrow Total time managing care of this patient today: 35 minutes. Quality Stroke Does the patient have a stroke diagnosis?: No Reason for No Anti-thrombotic by Day Two: N/A - Med Ordered VTE Prior VTE?: No VTE Risk Level:: Medical - moderate - high VTE Device Contraindication: N/A - Device Ordered VTE Drug Contraindication: N/A - Med Ordered
[2025-03-29 15:30] VITALS: BP 140/87; PULSE 85; RESP 18; TEMP 36.4; O2SAT 98
--- NOTE | 2025-03-29 16:16 | MHC.CM.PN ---
PER MD ROUNDS, PT MAY BE READY TO DC TOMORROW CM FOLLOWING
[2025-03-29 19:19] VITALS: BP 143/90; PULSE 80; RESP 18; TEMP 36.5; O2SAT 98
[2025-03-29] MEDS: 0.9 % Sodium Chloride Flush 3 ML SYRINGE IVFLUSH (20:18)
[2025-03-30 03:54] VITALS: BP 119/77; PULSE 68; RESP 16; TEMP 36.6; O2SAT 98
[2025-03-30 08:22] VITALS: BP 120/84; PULSE 83; RESP 18; TEMP 36.1; O2SAT 97
--- NOTE | 2025-03-30 10:17 | PM.DS ---
DS: Providers Provider Date of Service: 03/30/25 Date of admission: 03/26/25 01:06 Date of discharge: 03/30/25 Primary care physician: PARVIN Strauss Consults: 03/25/25 21:29 ED CARE Team Crisis Consult Routine Comment: Reason for consultation: alcohol abuse, wants detox 03/25/25 23:07 ED Recovery Team Consult Routine Comment: Reason for consultation: etoh, wants detox 03/26/25 01:08 Addiction Medicine Provider Routine Consulting Provider: Addiction Covering Reason for consultation: ETOH abuse Has provider been notified: No 03/26/25 01:53 Consult to Psychiatry Routine Consulting [place] [facility] [place] [facility] Reason for consultation: ETOH binge, ? depression, spouse filing section 35 9AM later today Has provider been notified: No DS: Diagnosis Discharge Diagnosis (1) MDD (major depressive disorder), recurrent episode, moderate: Status: Acute (2) Alcohol dependence: Status: Acute (3) Cocaine abuse in remission: Status: Acute (4) Alcohol abuse: Status: Acute (5) Alcohol withdrawal: Status: Acute (6) Alcohol use disorder, severe, dependence: Status: Acute (7) Family history of brain aneurysm: Status: Acute (8) Alcoholic gastritis: Status: Acute (9) Abdominal pain: Status: Acute (10) Influenza vaccination declined: Status: Acute (11) Cervical pain (neck): Status: Acute DS: Summary Hospital Course Hospital Course: 44-year-old male with past medical history substance use disorder in remission, alcohol use disorder stopped in 2020 with recurrence 1 month ago, cellulitis of face, vitamin-D deficiency was BIBA after a 2 week binge of alcohol using vodka, being admitted for alcohol withdrawal and intervention. PRESENTATION Chief Complaint: abd pain s/p binge drinking Patient is a 44-year-old male with past medical history substance use disorder in remission, alcohol use disorder stopped in 2020 with recurrence 1 month ago, cellulitis of face, vitamin-D deficiency was BIBA after a 2 week binge of alcohol using vodka, approximately 10 1.75 L bottles over this period of time due to stress at work and in life. Patient's spouse had recently left home to live with her parents for the last 2 weeks due to patient's drinking. Patient did reach out to his spouse today saying? I do not want to ?. During this time, the longer the patient went without alcohol, withdrawal symptoms started sooner than expected and patient did not want experienced these symptoms. Spouse is currently in the process of filing a section 35 later today at 09:00. Patient has had issues similar to this prior to 2020 and was in a 16 month rehab and has been sober since then. Patient currently denies any suicidal ideations or homicidal ideations but was hallucinating in the ED, seeing cats in the curtains, per ED provider. Pt is currently able to follow commands and protect his airway. Currently patient has no legal issues pending. Patient has received a section 12 in the past. Spouse is committed to supporting her through this difficult time. Spouse indicates that patient has a adult daughter from a previous relationship that is currently away at college and patient has been dealing with limited communication and interaction. Patient also expressing how the loss of his parents continues to affect him especially during the holidays. Patient has not been diagnosed formally with any psychiatric problems including depression or anxiety. Up until a month ago patient was an avid runner and currently complains of lower calf pain B. patient has been extremely sedentary over the last 2 weeks per patient's spouse. Spouse denies any injuries, falls. Patient denies any chest pain, shortness of breath at rest but has been having nausea and vomiting but no obvious aspiration. Patient reports mild abdominal pain midepigastric area but denies any reflux. Patient currently has a mild leukopenia, platelet count of a 101 K, lipase 91, T bili 1.7, AST 220, ALT 139,ALK PHOS 95. MG, LA pending. UA +1 protein otherwise negative for signs of UTI. Patient is started on phenobarbital protocol in the ED. Patient currently tolerating p.o. intake and is started on a clear diet. PROBLEM LIST Alcohol withdrawal secondary to binge drinking Remote hx of substance use disorder (cocaine) Patient is started on phenobarbital protocol CIWA BAL on admission 400 Addictions consulted Thiamine and folic acid ordered Lipase 91, IV fluids administered Lactic acid, magnesium normal. Plan for discharge to [facility] rehab outpatient - has completed phenobarb protocol 03/30/2025. Alcoholic Hepatitis Transaminitis Likely secondary to binge drinking Lactic acid pending Monitor CMP Avoid hepatotoxic meds Thrombocytopenia Likely secondary to BM suppression from alcohol use Still above 100 K with no spontaneous bleeding Monitor CBC daily GERD Hx of esophagitis Related to ETOH use Protonix Daily H.H stable Vitamin-D deficiency Continue vitamin-D supplementation once med rec is completed Vitamin-D levels WNL 01/2025 Status at Discharge Cognitive/behavioral status at discharge: ALERT AND ORIENTED TO PERSON PLACE TIME AND SITUATION Functional status at discharge: independent ambulation Overall status at discharge: patient is back to baseline Time Attestation Total time managing care of this patient today: 45 mintues. Discharge Coordination Time (in mins): 35 Quality: Safe Use of Opioids Does Pt have an Active Cancer Diagnosis on the Problem List?: No Quality: Stroke Does the patient have a stroke diagnosis?: No Physical Exam Exam: Exam: General: A&O x3, oriented to time place person and situation, comfortable, no pain Cardiac: S1, S2 auscultated with no S3/4, no MRG. Well perfused. Respiratory: Normal breath sounds auscultated throughout all lung zones, without wheezing, rales. Normal rate. GI/ : No abdominal pain on palpation, no masses or distentions. MSK: Normal ambulation without pain at bony prominences or musculature Neurological: Normal neurological examination on overview, without obvious CN II-XII abnormalities. Vital Signs: Vital Signs: Last Vital Signs Temp 97.0 F 03/30/25 08:22 Pulse 83 03/30/25 08:22 Resp 18 03/30/25 08:22 BP 120/84 03/30/25 08:22 Pulse Ox 97 03/30/25 08:22 O2 Del Method Room Air 03/30/25 08:22 BMI result Body Mass Index 26.9 Discharge Plan Discharge Anticipated Discharge Date/Time: 03/30/25 10:20 Patient Disposition: Home, Self-Care Discharge Diagnosis: ETOH abuse with withdrawal and electrolyte abnormalities, with alcoholic hepatitis Referrals: Marybel Davidson, [facility] [Primary Care Provider, Internal Medicine] - 1 Week Discharge Medications: No Action No Known Home Meds Discharge Orders: Discharge Order (Routine); Ordered 03/30/25 Ordered By: Jack Whitehead Diet: Advance to usual diet Activity on Discharge: As tolerated Stand Alone Forms: Patient Portal Discharge page Print Language: Nauruan Care Plan Goals: As above Health Concerns: As above Plan of Treatment: Continue alcohol abstinence Follow up with PCP within 1-2 weeks to discharge Patient is voluntarily admitted himself to a rehab facility Consider addition of naltrexone in outpatient setting Assessment: Hemodynamically stable and ready for discharge
--- NOTE | 2025-03-30 10:34 | MHC.CM.PN ---
PT CLEARED TO DC HOME TODAY WITH NO SERVICES PT TO ARRANGE TRANSPORT
== END 2025-03-30 10:33 | disposition home or self-care (01) | DRG 897 ==
LOC: HO.ED 03-26 01:06 → HO.EDOVER 03-26 01:26 → HO.IMC 03-26 15:25 → HO.S3 03-28 10:02
PROVIDERS: Internal Medicine; Admitting Provider Nurse Practitioner Family; Emergency Provider Emergency Medicine; PCP Nurse Practitioner Family; Visit Provider Hospitalist
DX: F10.239 Alcohol dependence with withdrawal, unspecified (principal); K29.20 Alcoholic gastritis without bleeding; F14.11 Cocaine abuse, in remission; Y90.8 Blood alcohol level of 240 mg/100 ml or more; E55.9 Vitamin D deficiency, unspecified; D69.59 Other secondary thrombocytopenia; K21.9 Gastro-esophageal reflux disease without esophagitis; K70.10 Alcoholic hepatitis without ascites; Z63.4 Disappearance and death of family member; Z87.891 Personal history of nicotine dependence
CPT/HCPCS: 36415; 80053; 80307; 81001; 82550; 83605; 83690; 83735; 85025; 93005; 99285; J1650; J2405; J2470; J2560; J3360; J3411; S9485

== ENCOUNTER → 2025-03-25 21:05 | Outpatient (BNV) | payer OTHER, SELFPAY | PROVIDERS: Admitting Provider Nurse Practitioner Family; Emergency Provider Emergency Medicine; PCP Nurse Practitioner Family; Visit Provider Internal Medicine Cardiovascular Disease | DX: R00.0 Tachycardia, unspecified (principal) | CPT/HCPCS: 93010 ==

== ENCOUNTER → 2025-03-26 01:06 | Outpatient (BNV) | payer OTHER, SELFPAY | PROVIDERS: Admitting Provider Nurse Practitioner Family; Emergency Provider Emergency Medicine; PCP Nurse Practitioner Family; Visit Provider Nurse Practitioner Family | DX: F10.932 Alcohol use, unspecified with withdrawal with perceptual disturbance (principal) | CPT/HCPCS: 99223; 99358 ==

== ENCOUNTER → 2025-03-26 01:06 | Outpatient (BNV) | payer OTHER, SELFPAY | PROVIDERS: Admitting Provider Nurse Practitioner Family; Emergency Provider Emergency Medicine; PCP Nurse Practitioner Family; Visit Provider Social Worker | DX: F10.20 Alcohol dependence, uncomplicated (principal) | CPT/HCPCS: 99222; 99233 ==